=== PATIENT | female | born 1990 | race Caucasian/White ===

== ENCOUNTER 2018-04-11 05:26 | Emergency (ER) | payer SELFPAY ==
[~2018-04-11] VITALS: Ht 154.9 cm; Wt 54.4 kg
[~2018-04-11 05:26] MED LIST: BIRTH CONTROL PO; CEPH500C PO; DOXY100C2 PO; FLC100T1 PO; HYDR118S10 PO; PHEN200T27 PO; TRAM-21 PO
--- OUTSIDE RECORDS SUMMARY | 2018-04-11 05:33 | XMS REPORT | Continuity of Care Document ---
Author Author [facility] Organization [facility] Address Unknown Phone Unavailable Allergies There is no data. Medications There is no data. Problems Date Dx Coded Attending Type Code Diagnosis Diagnosed By 05/05/2009 JODIE VYAS APRN 599.0 URINARY TRACT INFECTION SITE NOT SPECIFIED 05/05/2009 JODIE VYAS APRN A 682.5 CELLULITIS AND ABSCESS OF BUTTOCK 05/05/2009 JODIE VYAS APRN A 599.0 URINARY TRACT INFECTION SITE NOT SPECIFIED 05/05/2009 JODIE VYAS APRN 682.5 CELLULITIS AND ABSCESS OF BUTTOCK 07/23/2013 JODIE VYAS APRN A 789.03 ABDOMINAL PAIN RIGHT LOWER QUADRANT 07/23/2013 JODIE VYAS APRN A V25.01 CONTRACEPTION - ORAL CONTRACEPTION 07/23/2013 JODIE VYAS APRN A V74.5 STD SCREEN 07/23/2013 JODIE VYAS APRN A V76.10 BREAST CANCER SCREENING 07/23/2013 JODIE VYAS APRN A V76.2 CERVICAL CANCER SCREENING (PAP SMEAR) 07/23/2013 JODIE VYAS APRN A 789.03 ABDOMINAL PAIN RIGHT LOWER QUADRANT 07/23/2013 JODIE VYAS APRN A V25.01 CONTRACEPTION - ORAL CONTRACEPTION 07/23/2013 JODIE VYAS APRN A V74.5 STD SCREEN 07/23/2013 JODIE VYAS APRN A V76.10 BREAST CANCER SCREENING 07/23/2013 JODIE VYAS APRN A V76.2 CERVICAL CANCER SCREENING (PAP SMEAR) 02/09/2014 JODIE VYAS APRN A V65.45 COUNSELING - STD Procedures Code Description [place] [address] GC/CHLAM PROBE (STATE) 07/23/2013 Q0091 PAP SMEAR OBTAIN SMEAR 07/23/2013 23029 URINE TEST (IN- HOUSE) 07/23/2013 27389 UA W/ CULTURE IF INDICATED 07/23/2013 89120 TRICHOMONAS (IN-HOUSE) 07/23/2013 00516 CULTURE UROGENITAL 07/27/2013 88352 PAP SMEAR 07/29/2013 Results There is no data. Encounters ACCT No. Visit Date/Time Discharge Status Pt. Type Provider Facility Loc./Unit Complaint [id number] 11/18/2013 15:17:00 11/18/2013 23:59:59 CLS Outpatient [id number] 09/21/2013 10:48:00 09/21/2013 14:29:00 DIS Emergency [id number] 09/18/2013 16:39:00 09/18/2013 21:12:00 DIS Emergency [id number] 07/21/2013 04:16:00 07/21/2013 04:50:00 DIS Emergency [id number] 02/09/2014 14:45:00 02/09/2014 23:59:59 CLS Outpatient JODIE VYAS APRN [id number] 07/23/2013 14:16:00 07/23/2013 23:59:59 CLS Outpatient JODIE VYAS APRN [id number] 03/20/2018 13:00:00 03/20/2018 23:59:59 CLS Outpatient KEVIN GLOVER DO [facility]
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
[2018-04-11 07:01] VITALS: BP 146/96
== END 2018-04-11 07:04 | disposition home or self-care (01) ==
LOC: EDUNIT# 05:26 → ER 05:30
DX: S00.83XA Contusion of other part of head, initial encounter (principal); S10.93XA Contusion of unspecified part of neck, initial encounter; R40.2142 Coma scale, eyes open, spontaneous, at arrival to emergency department; R40.2252 Coma scale, best verbal response, oriented, at arrival to emergency department; R40.2362 Coma scale, best motor response, obeys commands, at arrival to emergency department; F17.210 Nicotine dependence, cigarettes, uncomplicated; Y04.8XXA Assault by other bodily force, initial encounter
CPT/HCPCS: 70450; 70486; 72125

== ENCOUNTER 2018-12-20 23:11 | Emergency (ER) | payer SELFPAY ==
[~2018-12-20] VITALS: Ht 154.9 cm; Wt 52.2 kg
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
--- OUTSIDE RECORDS SUMMARY | 2018-12-21 00:43 | XMS REPORT ---
Author Author MARY BETH OWENS Organization [facility] Address [address] [place] [address] Care Team Providers Care Game Advisor Name Role Phone MARY BETH OWENS Unavailable PROBLEMS Type Condition ICD9-CM Code LPV67-[place] Code Onset Dates Condition Status SNOMED Code Problem Screening for malignant neoplasm of the cervix V76.2 Active 564183894 Problem Constipation 564.00 Active 34096293 Problem Abdominal pain, right lower quadrant 789.03 Active 854423720 Problem Screening examination for venereal disease V74.5 Active 056753475 Problem Unspecified breast screening V76.10 Active 169843740 Problem General counseling for prescription of oral contraceptives V25.01 Active 425989058397096 Problem Counseling on other sexually transmitted diseases V65.45 Active 746340614 ALLERGIES No Known Allergies ENCOUNTERS Encounter Location Date Diagnosis [facility] [address] [id number] March, Dental examination Z01.20 [facility] [id number] [place] [phone] Jan, Bronchitis J40 [facility] [id number] [place] [phone] Apr, Constipation 564.00 and Abdominal pain, right lower quadrant 789.03 [facility] [id number] [place] [phone] Feb, [facility] [address] [phone] Feb, [facility] [address] [phone] Feb, [facility] [address] [phone] Feb, [facility] [address] [facility] [id number] [id number] 27 Jul, 2013 [facility] [address] [facility] [id number] [address] 18 Jul, 2013 [facility] [address] [facility] [id number] [address] 16 Jul, 2013 [facility] [address] [facility] [id number] [address] 12 Jul, 2013 IMMUNIZATIONS No Known Immunizations SOCIAL HISTORY Never Assessed REASON FOR VISIT flu symptoms Pt c/o fever and cough for several days ROGELIO Ritchie PLAN OF CARE VITAL SIGNS Height 61 in 2018-01-15 Weight 125.6 lbs 2018-01-15 Temperature 99.9 degrees Fahrenheit 2018-01-15 Heart Rate 94 bpm 2018-01-15 Respiratory Rate 18 2018-01-15 BMI 23.73 kg/m2 2018-01-15 Blood pressure systolic 122 mmHg 2018-01-15 Blood pressure diastolic 60 mmHg 2018-01-15 MEDICATIONS Medication Instructions Dosage Frequency Start Date End Date Duration Status Amoxicillin 500 mg Orally every 8 hrs 1 capsule 8h Jan, Jan, 10 day(s) Active PredniSONE 20 mg Orally Once a day 2 tablets 24h Jan, Jan, 05 days Active RESULTS No Results PROCEDURES No Known procedures INSTRUCTIONS MEDICATIONS ADMINISTERED No Known Medications MEDICAL (GENERAL) HISTORY Type Description Date Medical History bronchitis Medical History prednisone Medical History hives/eczema
--- OUTSIDE RECORDS SUMMARY | 2018-12-21 00:43 | XMS REPORT ---
Author Author LAURALIZZY VANESSA [facility] Address Unknown Care Team Providers Care Mortgage Closing Clerk Name Role Phone VANESSA SPENCE Unavailable PROBLEMS Type Condition ICD9-CM Code ANG77-ZG Code Onset Dates Condition Status SNOMED Code Problem Screening for malignant neoplasm of the cervix V76.2 Active 539317303 Problem Constipation 564.00 Active 67571522 Problem Abdominal pain, right lower quadrant 789.03 Active 638925280 Problem Screening examination for venereal disease V74.5 Active 751843747 Problem Unspecified breast screening V76.10 Active 961242447 Problem General counseling for prescription of oral contraceptives V25.01 Active 176819049882298 Problem Counseling on other sexually transmitted diseases V65.45 Active 711309204 ALLERGIES No Known Allergies ENCOUNTERS Encounter Location Date Diagnosis [facility] [id number] [place] [id number] March, Dental examination Z01.20 [facility] [id number] [place] [address] Jan, Bronchitis J40 [facility] [id number] [place] [address] Apr, Constipation 564.00 and Abdominal pain, right lower quadrant 789.03 [facility] [id number] [place] [address] Feb, [facility] [id number] [place] [address] Feb, [facility] [id number] [place] [address] Feb, [facility] [id number] [place] [phone] Feb, [facility] [id number] [place] [address] 27 Jul, 2013 [facility] [address] [facility] [id number], [place] [address] 18 Jul, 2013 [facility] [address] [facility] [id number], [place] [address] 16 Jul, 2013 [facility] [address] [facility] [id number] [place] [address] 12 Jul, 2013 IMMUNIZATIONS No Known Immunizations SOCIAL HISTORY Never Assessed REASON FOR VISIT logan/pain PLAN OF CARE Activity Details Follow Up prn Reason:pt will contact us VITAL SIGNS Blood pressure systolic 138 mmHg 2018-03-20 Blood pressure diastolic 82 mmHg 2018-03-20 MEDICATIONS Medication Instructions Dosage Frequency Start Date End Date Duration Status Amoxicillin 500 MG Orally Three times a day 1 capsule 8h 7 days Active Naproxen Active RESULTS No Results PROCEDURES Procedure Date Ordered Result Body Site LTD ORAL EVALUATION - PROBLEM FOCUS March 20, 2018 INTRAORL-PERIAPICAL 1 FILM 22397 March 20, 2018 BITEWINGS - TWO FILMS March 20, 2018 INTRAORL-PERIAPICAL EA ADD FILM March 20, 2018 INSTRUCTIONS MEDICATIONS ADMINISTERED No Known Medications MEDICAL (GENERAL) HISTORY Type Description Date Medical History bronchitis Medical History prednisone Medical History hives/eczema
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
[2018-12-21 01:36] LABS: BILIRUBIN,URINE NEGATIVE (NEGATIVE); CLARITY,URINE SLIGHTLY CLOUDY; COLOR,URINE YELLOW; GLUCOSE, URINE (UA) NEGATIVE (NEGATIVE); KETONES,URINE NEGATIVE (NEGATIVE); LEUKOCYTE ESTERASE ,URINE 2+ (NEGATIVE); NITRITE,URINE POSITIVE (NEGATIVE); PH,URINE 6 (5-9); PROTEIN,URINE NEGATIVE (NEGATIVE); UROBILINOGEN,URINE NORMAL (NORMAL)
[2018-12-21 01:45] LABS: BASOPHILS % (AUTO) 0 % (0-10); EOSINOPHILS # (AUTO) 0.2 10^3/uL (0.0-0.3); EOSINOPHILS % (AUTO) 2 % (0-10); HEMATOCRIT 45 % (35-52); HEMOGLOBIN 15.3 G/DL (11.5-16.0); LYMPHOCYTES # (AUTO) 2.1 X 10^3 (1.0-4.0); LYMPHOCYTES % (AUTO) 23 % (12-44); MEAN CORPUSCULAR HEMOGLOBIN 29 PG (25-34); MEAN CORPUSCULAR HGB CONC 34 G/DL (32-36); MEAN CORPUSCULAR VOLUME 85 FL (80-99); MEAN PLATELET VOLUME 8.9 FL (7.4-10.4); MONOCYTES # (AUTO) 0.6 X 10^3 (0.0-1.0); MONOCYTES % (AUTO) 6 % (0-12); NEUTROPHILS % (AUTO) 68 % (42-75); PLATELET COUNT 422 10^3/uL (130-400); WHITE BLOOD COUNT 8.9 10^3/uL (4.3-11.0)
[2018-12-21 01:45] LABS: BACTERIA,URINE LARGE /HPF; WBC,URINE 50-100 /HPF
[2018-12-21 01:46] LABS: AMPHETAMINE SCREEN, URINE NEGATIVE (NEGATIVE); BARBITURATE SCREEN URINE NEGATIVE (NEGATIVE); BENZODIAZEPINES SCREEN URINE NEGATIVE (NEGATIVE); CANNABINOID SCREEN, URINE NEGATIVE (NEGATIVE); COCAINE SCREEN URINE NEGATIVE (NEGATIVE); METHADONE STAT NEGATIVE (NEGATIVE); METHAMPHETAMINE SCREEN URINE S NEGATIVE (NEGATIVE); OPIATE SCREEN URINE NEGATIVE (NEGATIVE); OXYCODONE STAT NEGATIVE (NEGATIVE); PROPOXYPHENE STAT NEGATIVE (NEGATIVE); TRICYCLIC ANTIDEPRESSANTS SCRE NEGATIVE (NEGATIVE)
[2018-12-21 02:06] LABS: ALANINE AMINOTRANSFERASE 12 U/L (0-55); ALBUMIN 4.8 GM/DL (3.2-4.5); ALKALINE PHOSPHATASE 93 U/L (40-136); BILIRUBIN,TOTAL 0.4 MG/DL (0.1-1.0); BUN/CREATININE RATIO 16; CALCIUM 10.1 MG/DL (8.5-10.1); CARBON DIOXIDE 26 MMOL/L (21-32); CHLORIDE 102 MMOL/L (98-107); CREATININE SERUM 0.83 MG/DL (0.60-1.30); GFR ESTIMATED > 60; GLUCOSE 72 MG/DL (70-105); POTASSIUM 3.5 MMOL/L (3.6-5.0); SALICYLATE < 5.0 MG/DL (5.0-20.0); SODIUM 140 MMOL/L (135-145)
[2018-12-21 02:10] LABS: ACETAMINOPHEN < 10 UG/ML (10-30)
[2018-12-21] MEDS ORDERED: CEPHALEXIN 250 MG (KEFLEX) CAP PO STA (02:32)
--- NOTE | 2018-12-21 02:53 | NUR ---
[facility] was called for open beds and they stated that they were completely full. [facility] was called and stated they might have opening in the morning. [facility] was called several times and got voicemail. Voicemail was left telling them to give us a call. does not have insurance so [facility] and [facility] is not an option.
--- NOTE | 2018-12-21 04:11 | NUR ---
Voicemail left with [facility]
--- NOTE | 2018-12-21 08:20 | NUR ---
Called [facility] for open bed. Was told to call back in two hours.
--- NOTE | 2018-12-21 10:43 | NUR ---
Called [facility] again. Nurse there reported staffing issues and unable to provide bad at this time. This nurse told to call back after 1600.
--- NOTE | 2018-12-21 10:51 | NUR ---
This nurse spoke to Fariha Harris. No beds available.
--- NOTE | 2018-12-21 10:52 | NUR ---
[facility] called at this time. No beds available. Nurse to call back if there is a discharge.
--- NOTE | 2018-12-21 10:55 | NUR ---
Pt sleeping upon entering room. Pt given update of bed status for psych transfer at this time.
--- NOTE | 2018-12-21 13:00 | NUR ---
Called and spoke with pt's mother re: being unable to find inpt bed for pt. Mother and pt open to having [facility] screen pt.
--- NOTE | 2018-12-21 13:15 | NUR ---
Message left with Kunal at [facility] requesting screening for pt.
--- NOTE | 2018-12-21 13:25 | NUR ---
Terri from [facility] called and Terri to come to ED and assess pt.
--- NOTE | 2018-12-21 14:43 | NUR ---
Terri from [facility] has met with pt. Terri reports pt is agreeable to [facility] and agrees to go home with family.
[2018-12-21 14:59] VITALS: BP 100/57
== END 2018-12-21 15:05 | disposition home or self-care (01) ==
LOC: EDUNIT# 23:11 → ER 23:15
DX: F22 Delusional disorders (principal); F17.210 Nicotine dependence, cigarettes, uncomplicated; Z98.890 Other specified postprocedural states
CPT/HCPCS: 36415; 80053; 80306; 80320; 80329; 81000; 84443; 84703; 85025; 87077; 87088; 87186; 93005

== ENCOUNTER 2019-08-22 14:17 | Emergency (ER) | payer SELFPAY ==
[~2019-08-22] VITALS: Ht 154 cm; Wt 61.0 kg
[2019-08-22] MEDS ORDERED: ALPRAZolam 0.5 MG (XANAX) TAB PO SCH (15:15)
[2019-08-22] MEDS ORDERED: OLANZapine 5 MG ODT (ZyPREXA ZYDIS) PO ONE (15:30)
--- NOTE | 2019-08-22 15:30 | NUR ---
URINE COLLECTED FROM PT FELT COOL ET NOT WARM. ZEN NOTIFIED.
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
[2019-08-22 15:40] LABS: BILIRUBIN,URINE NEGATIVE (NEGATIVE); CLARITY,URINE CLEAR; COLOR,URINE YELLOW; GLUCOSE, URINE (UA) NEGATIVE (NEGATIVE); KETONES,URINE NEGATIVE (NEGATIVE); LEUKOCYTE ESTERASE ,URINE 2+ (NEGATIVE); NITRITE,URINE NEGATIVE (NEGATIVE); PH,URINE 7 (5-9); PROTEIN,URINE NEGATIVE (NEGATIVE); UROBILINOGEN,URINE NORMAL (NORMAL)
[2019-08-22 15:45] LABS: RBC,URINE RARE /HPF
[2019-08-22 15:46] LABS: BACTERIA,URINE FEW /HPF; WBC,URINE 25-50 /HPF
[2019-08-22 15:52] LABS: AMPHETAMINE SCREEN, URINE POSITIVE (NEGATIVE); BARBITURATE SCREEN URINE NEGATIVE (NEGATIVE); BENZODIAZEPINES SCREEN URINE POSITIVE (NEGATIVE); CANNABINOID SCREEN, URINE NEGATIVE (NEGATIVE); COCAINE SCREEN URINE NEGATIVE (NEGATIVE); METHADONE STAT NEGATIVE (NEGATIVE); METHAMPHETAMINE SCREEN URINE S POSITIVE (NEGATIVE); OPIATE SCREEN URINE POSITIVE (NEGATIVE); OXYCODONE STAT NEGATIVE (NEGATIVE); PROPOXYPHENE STAT NEGATIVE (NEGATIVE); TRICYCLIC ANTIDEPRESSANTS SCRE POSITIVE (NEGATIVE)
[2019-08-22 16:06] LABS: BASOPHILS % (AUTO) 0 % (0-10); EOSINOPHILS # (AUTO) 0.2 10^3/uL (0.0-0.3); EOSINOPHILS % (AUTO) 2 % (0-10); HEMATOCRIT 38 % (35-52); HEMOGLOBIN 13.4 G/DL (11.5-16.0); LYMPHOCYTES # (AUTO) 1.6 X 10^3 (1.0-4.0); LYMPHOCYTES % (AUTO) 16 % (12-44); MEAN CORPUSCULAR HEMOGLOBIN 28 PG (25-34); MEAN CORPUSCULAR HGB CONC 35 G/DL (32-36); MEAN CORPUSCULAR VOLUME 81 FL (80-99); MEAN PLATELET VOLUME 9.1 FL (7.4-10.4); MONOCYTES # (AUTO) 0.7 X 10^3 (0.0-1.0); MONOCYTES % (AUTO) 7 % (0-12); NEUTROPHILS # (AUTO) 7.6 X 10^3 (1.8-7.8); NEUTROPHILS % (AUTO) 75 % (42-75); PLATELET COUNT 340 10^3/uL (130-400); RED CELL DISTRIBUTION WIDTH 12.4 % (10.0-14.5)
[2019-08-22] MEDS ORDERED: CEPH500T PO (16:08)
[2019-08-22] MEDS ORDERED: CEFDINIR 300 MG (OMNICEF) CAP PO ONE (16:15)
[2019-08-22 16:25] LABS: ALANINE AMINOTRANSFERASE 34 U/L (0-55); ALBUMIN 4.3 GM/DL (3.2-4.5); ALKALINE PHOSPHATASE 93 U/L (40-136); BILIRUBIN,TOTAL 0.5 MG/DL (0.1-1.0); BUN/CREATININE RATIO 10; CALCIUM 8.7 MG/DL (8.5-10.1); CARBON DIOXIDE 24 MMOL/L (21-32); CHLORIDE 104 MMOL/L (98-107); CREATININE SERUM 0.82 MG/DL (0.60-1.30); GFR ESTIMATED > 60; GLUCOSE 102 MG/DL (70-105); SODIUM 138 MMOL/L (135-145)
[2019-08-22] MEDS ORDERED: KCL 10 MEQ TAB (MICRO K) PO ONE (16:30)
[2019-08-22] MEDS ORDERED: RISP2TAB83 PO (16:32)
[2019-08-22 16:50] VITALS: BP 132/75
[2019-08-22] MEDS ORDERED: POTA-51 PO (17:04)
== END 2019-08-22 16:50 | disposition home or self-care (01) ==
LOC: EDUNIT# 14:17 → ER 14:19
DX: N39.0 Urinary tract infection, site not specified (principal); F15.90 Other stimulant use, unspecified, uncomplicated; F17.210 Nicotine dependence, cigarettes, uncomplicated
CPT/HCPCS: 36415; 80053; 80306; 81000; 84703; 85025; 87077; 87088; 87186; 99283

== ENCOUNTER 2019-09-22 21:19 | Emergency (ER) | payer SELFPAY ==
[~2019-09-22] VITALS: Ht 154.9 cm; Wt 61.0 kg
[~2019-09-22 21:19] MED LIST changes: +CEPH500T PO; +POTA-51 PO; +RISP2TAB83 PO
--- NOTE | 2019-09-22 21:46 | ED General ---
General Stated Complaint: POSS HEP B EXPOSURE Source of Information: Patient Exam Limitations: Intoxication History of Present Illness Date Seen by Provider: Sep 22, 2019 Time Seen by Provider: 21:33 Initial Comments PT ARRIVES VIA POV PT IS OBVIOUSLY UNDER THE INFLUENCE OF SOME SUBSTANCE/S--KNOWN METH USER SPEECH IS VERY RAPID AND ERRATIC AND COMPLETELY NON-SENSICAL AND SENTENCES ARE NOT CONNECTED AND CANNOT COMPLETE MOST SENTENCES. IS UNKNOWN WHY SHE IS HERE, SHE CANNOT GIVE ANY RELIABLE INFORMATION PACING ALL OVER ROOM, WITH CONSTANT MOVEMENTS PT CANNOT VOICE A COMPLAINT OR REASON WHY SHE IS HERE. EVENTUALLY ADMITS TO DRUG USE, BUT CANNOT STATE WHAT OR WHEN SHE LAST USED DOES ADMIT TO IV METH USE. ALSO ADMITS TO THC AND K2 USE. UNABLE TO OBTAIN ANY OTHER RELIABLE INFORMATION FROM PT PCP: [facility] Allergies and Home Medications Allergies Coded Allergies: NKANo Known Allergies (Unverified Allergy, Mild, 05/06/09) Home Medications [ Control] , 1 TAB PO DAILY, (Reported) Patient Home Medication List Home Medication List Reviewed: Yes Review of Systems Review of Systems Constitutional: other (UNABLE TO OBTAIN) Past Rvxfmvh-Gmibso-Sxoapy Hx Past Med/Social Hx: Reviewed and Corrections made Patient Social History Alcohol Use: Occasionally Uses Alcohol Beverage of Choice: Beer Recreational Drug Use: Yes (+ IV METH, THC, K2, XANAX, "OTHERS") Drug of Choice: +IV METH, XANAX, K2, THC, "OTHERS" Smoking Status: Current Everyday Smoker (UNKNOWN AMOUNT) Type Used: Cigarettes 2nd Hand Smoke Exposure: Yes Recent Foreign Travel: No Contact w/Someone Who Travel: No Recent Hopitalizations: No Immunizations Up To Date Tetanus Booster (TDap): Less than 5yrs Seasonal Allergies Seasonal Allergies: No Past Medical History Surgeries: Yes Orthopedic Respiratory: No Cardiac: No Neurological: No Reproductive Disorders: No Female Reproductive Disorders: Denies Sexually Transmitted Disease: Yes Genitourinary: No Gastrointestinal: No Musculoskeletal: No Endocrine: No HEENT: No Cancer: No Psychosocial: Yes (POLYSUBSTANCE ABUSE) Integumentary: No Blood Disorders: No Family Medical History No Pertinent Family Hx Physical Exam Vital Signs Vital Signs - First Documented 09/22/19 09/22/19 21:33 22:25 Temp 36.7 Pulse 120 Resp 22 B/P (MAP) 113/94 (100) Pulse Ox 100 Capillary Refill : Height, Weight, BMI Height: 5'1.00" Weight: 115lbs. oz. 52.620406co; 25.00 BMI Method:Stated General Appearance: No Apparent Distress, WD/WN, Other (SPEECH VERY RAPID AND ERRATIC AND COMPLETELY NON-SENSICAL. SPEECH IS NOT SLURRED. PACING, CONSTANT MOVEMENTS OF ENTIRE BODY, INCLUDING MOUTH AND TONGUE.) HEENT: PERRL/EOMI, TMs Normal, Normal ENT Inspection, Pharynx Normal Neck: Full Range of Motion, Normal Inspection, Non Tender, Supple Respiratory: Normal Breath Sounds, No Accessory Muscle Use, No Respiratory Distress Cardiovascular: Regular Rate, Rhythm, No Edema, No JVD, No Murmur, Normal Peripheral Pulses Gastrointestinal: Normal Bowel Sounds, No Organomegaly, Non Tender, Soft Back: No CVA Tenderness Extremity: Normal Range of Motion, No Pedal Edema Neurologic/Psychiatric: Alert, No Motor/Sensory Deficits, librarian helper II-XII Norm as Tested, Other (BEHAVIOR/MENTATION ABOVE--OBVIOUSLY UNDER THE INFLUENCE OF SOME SUBSTANCE/S ) Skin: Normal Color, Warm/Dry; No Rash; Other (NO EXTERNAL EVIDENCE OF TRAUMA ANYWHERE. ) Progress/Results/Core Measures Suspected Sepsis SIRS Temperature: Pulse: Respiratory Rate: Laboratory Tests 09/22/19 21:50: White Blood Count 11.7H Blood Pressure / Mean: Laboratory Tests 09/22/19 21:50: Creatinine 0.82, Platelet Count 367, Total Bilirubin 0.6 Results/Orders Lab Results Laboratory Tests Test 09/22/19 21:50 Range/Units White Blood Count 11.7 H 4.3-11.0 10^3/uL Red Blood Count 5.08 4.35-5.85 10^6/uL Hemoglobin 14.3 11.5-16.0 G/DL Hematocrit 40 35-52 % Mean Corpuscular Volume 79 L 80-99 FL Mean Corpuscular Hemoglobin 28 25-34 PG Mean Corpuscular Hemoglobin Concent 36 32-36 G/DL Red Cell Distribution Width 12.9 10.0-14.5 % Platelet Count 367 130-400 10^3/uL Mean Platelet Volume 9.1 7.4-10.4 FL Neutrophils (%) (Auto) 78 H 42-75 % Lymphocytes (%) (Auto) 11 L 12-44 % Monocytes (%) (Auto) 10 0-12 % Eosinophils (%) (Auto) 1 0-10 % Basophils (%) (Auto) 0 0-10 % Neutrophils # (Auto) 9.1 H 1.8-7.8 X 10^3 Lymphocytes # (Auto) 1.3 1.0-4.0 X 10^3 Monocytes # (Auto) 1.2 H 0.0-1.0 X 10^3 Eosinophils # (Auto) 0.1 0.0-0.3 10^3/uL Basophils # (Auto) 0.0 0.0-0.1 10^3/uL Urine Color DARK YELLOW Urine Clarity CLOUDY Urine pH 5.5 5-9 Urine Specific Lincoln >=1.030 1.016-1.022 Urine Protein TRACE NEGATIVE Urine Glucose (UA) NEGATIVE NEGATIVE Urine Ketones NEGATIVE NEGATIVE Urine Nitrite NEGATIVE NEGATIVE Urine Bilirubin 1+ H NEGATIVE Urine Urobilinogen 0.2 < = 1.0 MG/DL Urine Leukocyte Esterase NEGATIVE NEGATIVE Urine RBC (Auto) 1+ H NEGATIVE Urine RBC 2-5 H /HPF Urine WBC RARE /HPF Urine Squamous Epithelial Cells 10-25 H /HPF Urine Crystals NONE /LPF Urine Bacteria FEW H /HPF Urine Casts NONE /LPF Urine Mucus LARGE H /LPF Urine Culture Indicated NO Sodium Level 140 135-145 MMOL/L Potassium Level 3.6 3.6-5.0 MMOL/L Chloride Level 104 98-107 MMOL/L Carbon Dioxide Level 21 21-32 MMOL/L Anion Gap 15 H 5-14 MMOL/L Blood Urea Nitrogen 10 7-18 MG/DL Creatinine 0.82 0.60-1.30 MG/DL Estimat Glomerular Filtration Rate > 60 BUN/Creatinine Ratio 12 Glucose Level 84 70-105 MG/DL Calcium Level 9.9 8.5-10.1 MG/DL Corrected Calcium 8.5-10.1 MG/DL Total Bilirubin 0.6 0.1-1.0 MG/DL Aspartate Amino Transf (AST/SGOT) 22 5-34 U/L Alanine Aminotransferase (ALT/SGPT) 13 0-55 U/L Alkaline Phosphatase 103 40-136 U/L Total Protein 7.8 6.4-8.2 GM/DL Albumin 4.8 H 3.2-4.5 GM/DL Salicylates Level < 5.0 L 5.0-20.0 MG/DL Urine Opiates Screen NEGATIVE NEGATIVE Urine Oxycodone Screen NEGATIVE NEGATIVE Urine Methadone Screen NEGATIVE NEGATIVE Urine Propoxyphene Screen NEGATIVE NEGATIVE Acetaminophen Level < 10 L 10-30 UG/ML Urine Barbiturates Screen NEGATIVE NEGATIVE Ur Tricyclic Antidepressants Screen POSITIVE H NEGATIVE Urine Phencyclidine Screen NEGATIVE NEGATIVE Urine Amphetamines Screen POSITIVE H NEGATIVE Urine Methamphetamines Screen POSITIVE H NEGATIVE Urine Benzodiazepines Screen POSITIVE H NEGATIVE Urine Cocaine Screen NEGATIVE NEGATIVE Urine Cannabinoids Screen NEGATIVE NEGATIVE Serum Alcohol < 10 <10 MG/DL My Orders Orders - IMAN DOSHI DO Acetaminophen (09/22/19 21:41) Alcohol (09/22/19 21:41) Cbc With Automated Diff (09/22/19 21:41) Comprehensive Metabolic Panel (09/22/19 21:41) Drug Screen Stat (Urine) (09/22/19 21:41) Salicylate (09/22/19 21:41) Ua Culture If Indicated (09/22/19 21:41) Urine Bedside (09/22/19 21:41) Vital Signs/I&O 09/22/19 09/22/19 21:33 22:25 Temp 36.7 36.7 Pulse 120 120 Resp 22 22 B/P (MAP) 113/94 (100) 112/92 (100) Pulse Ox 100 Capillary Refill : Progress Note : Progress Note UNEVENTFUL ER STAY PT WAS COOPERATIVE, AND NO BELLIGERENT OR DISRUPTIVE BEHAVIOR. Departure Impression Primary Impression: Illicit drug use Additional Impression: Polysubstance abuse Disposition: 01 HOME, SELF-CARE Condition: Stable Departure-Patient Inst. Referrals: [facility] (PCP/Family) Primary Care Physician Patient Instructions: Drug Abuse and Drug Addiction (DC) Add. Discharge Instructions: FOLLOW UP WITH [facility] FOR FURTHER CARE IMAN DOSHI DO Sep 22, 2019 21:46 POS
[2019-09-22 22:01] LABS: BASOPHILS % (AUTO) 0 % (0-10); CLARITY,URINE CLOUDY; COLOR,URINE DARK YELLOW; EOSINOPHILS # (AUTO) 0.1 10^3/uL (0.0-0.3); EOSINOPHILS % (AUTO) 1 % (0-10); GLUCOSE, URINE (UA) NEGATIVE (NEGATIVE); HEMATOCRIT 40 % (35-52); HEMOGLOBIN 14.3 G/DL (11.5-16.0); KETONES,URINE NEGATIVE (NEGATIVE); LEUKOCYTE ESTERASE ,URINE NEGATIVE (NEGATIVE); LYMPHOCYTES # (AUTO) 1.3 X 10^3 (1.0-4.0); LYMPHOCYTES % (AUTO) 11 % (12-44); MEAN CORPUSCULAR HEMOGLOBIN 28 PG (25-34); MEAN CORPUSCULAR HGB CONC 36 G/DL (32-36); MEAN CORPUSCULAR VOLUME 79 FL (80-99); MEAN PLATELET VOLUME 9.1 FL (7.4-10.4); MONOCYTES # (AUTO) 1.2 X 10^3 (0.0-1.0); MONOCYTES % (AUTO) 10 % (0-12); NEUTROPHILS # (AUTO) 9.1 X 10^3 (1.8-7.8); NEUTROPHILS % (AUTO) 78 % (42-75); NITRITE,URINE NEGATIVE (NEGATIVE); PH,URINE 5.5 (5-9); PLATELET COUNT 367 10^3/uL (130-400); PROTEIN,URINE TRACE (NEGATIVE); RED CELL DISTRIBUTION WIDTH 12.9 % (10.0-14.5); WHITE BLOOD COUNT 11.7 10^3/uL (4.3-11.0)
[2019-09-22 22:14] LABS: AMPHETAMINE SCREEN, URINE POSITIVE (NEGATIVE); BARBITURATE SCREEN URINE NEGATIVE (NEGATIVE); BENZODIAZEPINES SCREEN URINE POSITIVE (NEGATIVE); CANNABINOID SCREEN, URINE NEGATIVE (NEGATIVE); COCAINE SCREEN URINE NEGATIVE (NEGATIVE); METHADONE STAT NEGATIVE (NEGATIVE); METHAMPHETAMINE SCREEN URINE S POSITIVE (NEGATIVE); OPIATE SCREEN URINE NEGATIVE (NEGATIVE); OXYCODONE STAT NEGATIVE (NEGATIVE); PROPOXYPHENE STAT NEGATIVE (NEGATIVE); TRICYCLIC ANTIDEPRESSANTS SCRE POSITIVE (NEGATIVE)
[2019-09-22 22:17] LABS: BACTERIA,URINE FEW /HPF; BILIRUBIN,URINE 1+ (NEGATIVE); WBC,URINE RARE /HPF
[2019-09-22 22:21] LABS: ALANINE AMINOTRANSFERASE 13 U/L (0-55); ALBUMIN 4.8 GM/DL (3.2-4.5); ALKALINE PHOSPHATASE 103 U/L (40-136); BILIRUBIN,TOTAL 0.6 MG/DL (0.1-1.0); BUN/CREATININE RATIO 12; CALCIUM 9.9 MG/DL (8.5-10.1); CARBON DIOXIDE 21 MMOL/L (21-32); CHLORIDE 104 MMOL/L (98-107); CREATININE SERUM 0.82 MG/DL (0.60-1.30); GFR ESTIMATED > 60; GLUCOSE 84 MG/DL (70-105); POTASSIUM 3.6 MMOL/L (3.6-5.0); SALICYLATE < 5.0 MG/DL (5.0-20.0); SODIUM 140 MMOL/L (135-145); TOTAL PROTEIN 7.8 GM/DL (6.4-8.2)
[2019-09-22 22:22] LABS: ACETAMINOPHEN < 10 UG/ML (10-30)
[2019-09-22 22:25] VITALS: BP 112/92
--- NOTE | 2019-09-22 22:25 | NUR ---
PT REFUSED TO SIGN DC PAPER. PT CONTINUES TO EXHIBIT ERRATIC BEHAVIOR.
== END 2019-09-22 22:27 | disposition home or self-care (01) ==
LOC: EDUNIT# 21:19 → ER 21:21
DX: F15.10 Other stimulant abuse, uncomplicated (principal); F12.10 Cannabis abuse, uncomplicated; F13.10 Sedative, hypnotic or anxiolytic abuse, uncomplicated; F17.210 Nicotine dependence, cigarettes, uncomplicated
CPT/HCPCS: 36415; 80053; 80306; 80320; 80329; 81000; 84703; 85025

== ENCOUNTER 2019-10-05 13:59 | Emergency (ER) | payer SELFPAY ==
[~2019-10-05] VITALS: Ht 154.9 cm; Wt 56.8 kg
[2019-10-05] MEDS ORDERED: ACETAMINOPHEN 500 MG TAB (TYLENOL) PO ONE (14:30)
[2019-10-05] MEDS ORDERED: LIDOCAINE 2% VISCOUS 15 ML UDC PO ONE (14:30)
[2019-10-05] MEDS ORDERED: IBUPROFEN 800 MG (MOTRIN) TAB PO ONE (14:30)
[2019-10-05] MEDS ORDERED: AMOX-358 PO (14:52)
--- NOTE | 2019-10-05 14:52 | ED EENT ---
History of Present Illness General Chief Complaint: Dental Problems/Pain Stated Complaint: DENTAL PAIN Nursing Triage Note: Pt amb to triage with c/o dental pain. Pt reports approx x3 days ago, she began to experience discomfort in her Rt lower molar. Pt reports she now feels a "bump" below her Rt jaw. Pt reports discomfort when swallowing and stiff neck. Pt reports intermittent fever and chills, but denies checking temperature. Pt currently afebrile @ this time. Source: patient Exam Limitations: no limitations History of Present Illness Date Seen by Provider: Oct 05, 2019 Time Seen by Provider: 17:00 Allergies and Home Medications Allergies Coded Allergies: NKANo Known Allergies (Unverified Allergy, Mild, 05/06/09) Home Medications [ Control] , 1 TAB PO DAILY, (Reported) Past Qdmhlcw-Hbeyig-Leyetb Hx Patient Social History Alcohol Use: Rarely Uses Number of Drinks Today: 0 Alcohol Beverage of Choice: Beer Recreational Drug Use: No Drug of Choice: +IV METH, XANAX, K2, THC, "OTHERS" Smoking Status: Current Everyday Smoker Type Used: Cigarettes 2nd Hand Smoke Exposure: Yes Recent Foreign Travel: No Contact w/Someone Who Travel: No Recent Infectious Disease Expo: No Recent Hopitalizations: No Immunizations Up To Date Tetanus Booster (TDap): Less than 5yrs Seasonal Allergies Seasonal Allergies: No Past Medical History Surgeries: Yes Orthopedic Respiratory: No Cardiac: No Neurological: No Reproductive Disorders: No Female Reproductive Disorders: Denies Sexually Transmitted Disease: Yes Genitourinary: No Gastrointestinal: No Musculoskeletal: No Endocrine: No HEENT: No Cancer: No Psychosocial: Yes (POLYSUBSTANCE ABUSE) Anxiety, Depression Integumentary: No Blood Disorders: No Family Medical History No Pertinent Family Hx Physical Exam Vital Signs Vital Signs - First Documented 10/05/19 14:00 Temp 36.9 Pulse 98 Resp 15 B/P (MAP) 122/88 (99) Pulse Ox 97 O2 Delivery Room Air Height, Weight, BMI Height: 5'1.00" Weight: 115lbs. oz. 52.170262wf; 23.00 BMI Method:Stated Progress/Results/Core Measures Results/Orders My Orders Orders - BERNOT,YANIQUE Amoxicillin/Clavulanate Tablet (Augmenti (10/05/19 17:00) Acetaminophen Tablet (Tylenol Tablet) (10/05/19 14:30) Ibuprofen Tablet (Motrin Tablet) (10/05/19 14:30) Lidocaine 2% Viscous 15 Ml (Xylocaine Vi (10/05/19 14:30) Vital Signs/I&O 10/05/19 14:00 Temp 36.9 Pulse 98 Resp 15 B/P (MAP) 122/88 (99) Pulse Ox 97 O2 Delivery Room Air Blood Pressure Mean: 99 POS Departure Impression Primary Impression: Dental abscess Disposition: HOME, SELF-CARE Condition: Stable/Unchanged Departure-Patient Inst. Decision time for Depature: 14:51 Referrals: [facility] (PCP/Family) Primary Care Physician Patient Instructions: Tooth Abscess (DC) Add. Discharge Instructions: Take medication as directed. You may use topical viscous lidocaine for additional pain relief. Tylenol and ibuprofen as directed by the bottle for pain. Follow-up with a dentist of your choosing within 1 week for recheck. Return back to the emergency room for worsening symptoms or concerns as needed. All discharge instructions reviewed with patient and/or family. Voiced under standing. Scripts Amoxicillin/Potassium Clav (Augmentin 875-125 Tablet) 1 Each Tablet 1 EACH PO BID for 10 Days, #20 TAB 0 Refills Prov: YANIQUE QUIROZ 10/05/19 YANIQUE QUIROZ Oct 05, 2019 14:52 POS
[2019-10-05 15:03] VITALS: BP 122/88
[2019-10-05] MEDS ORDERED: AUGMENTIN 875 MG TAB (AMOXICILLIN/CLAVULANATE) PO SCH (17:00)
== END 2019-10-05 15:03 | disposition home or self-care (01) ==
LOC: EDUNIT# 13:59 → ER 14:00
DX: K04.7 Periapical abscess without sinus (principal); F41.9 Anxiety disorder, unspecified; F32.9 Major depressive disorder, single episode, unspecified; F17.210 Nicotine dependence, cigarettes, uncomplicated
CPT/HCPCS: 99283

== ENCOUNTER 2020-02-09 14:32 | Emergency (ER) | payer SELFPAY ==
[~2020-02-09] VITALS: Ht 154.9 cm; Wt 56.6 kg
[2020-02-09 14:32] VITALS: BP 155/89
[~2020-02-09 14:32] MED LIST changes: +AMOX-358 PO
--- NOTE | 2020-02-09 14:42 | ED Cough/URI ---
General Chief Complaint: Cough/Cold/Flu Symptoms Stated Complaint: COUGH Source: patient Exam Limitations: no limitations History of Present Illness Date Seen by Provider: Feb 09, 2020 Time Seen by Provider: 14:39 Initial Comments To Er with c/o cough and "lump in throat" x3-4 days. No fevers. no known exposure to COVID19 patients. she is currently homeless, states she states she drank some hot damn liquor this morning since the convenient store was out of toothpaste. She also states that she walked here from [place] and needs some water as well. She states that she smoked something this morning, doesnt believe it was meth because it made her tired. Timing/Duration: just prior to arrival Severity/Quality: mild Associated Symptoms: cough, sore throat Allergies and Home Medications Allergies Coded Allergies: NKANo Known Allergies (Unverified Allergy, Mild, 05/06/09) Home Medications Amoxicillin/Potassium Clav 1 Each Tablet, 1 EACH PO BID Prescribed by: YANIQUE QUIROZ on 10/05/19 1452 [ Control] , 1 TAB PO DAILY, (Reported) Patient Home Medication List Home Medication List Reviewed: Yes Review of Systems Review of Systems Constitutional: see HPI; No fever EENTM: see HPI, throat pain Respiratory: see HPI, cough Cardiovascular: no symptoms reported Genitourinary: no symptoms reported Musculoskeletal: no symptoms reported Skin: no symptoms reported Psychiatric/Neurological: No Symptoms Reported Past Nyursht-Ykqaoj-Dydhnc Hx Patient Social History Alcohol Beverage of Choice: Beer Drug of Choice: +IV METH, XANAX, K2, THC, "OTHERS" Type Used: Cigarettes 2nd Hand Smoke Exposure: Yes Recent Hopitalizations: No Immunizations Up To Date Tetanus Booster (TDap): Less than 5yrs Seasonal Allergies Seasonal Allergies: No Past Medical History Surgeries: Yes Orthopedic Respiratory: No Cardiac: No Neurological: No Reproductive Disorders: No Female Reproductive Disorders: Denies Sexually Transmitted Disease: Yes Genitourinary: No Gastrointestinal: No Musculoskeletal: No Endocrine: No HEENT: No Cancer: No Psychosocial: Yes (POLYSUBSTANCE ABUSE) Anxiety, Depression Integumentary: No Blood Disorders: No Family Medical History No Pertinent Family Hx Physical Exam Vital Signs - First Documented 02/09/20 14:32 Temp 36.8 Pulse 111 Resp 18 B/P (MAP) 155/89 (111) Pulse Ox 97 O2 Delivery Room Air Capillary Refill : Height: 5'1.00" Weight: 115lbs. oz. 52.784737vk; 23.00 BMI Method:Stated General Appearance: WD/WN, no apparent distress Eyes: Bilateral Eye Normal Inspection, Bilateral Eye PERRL, Bilateral Eye EOMI HEENT: PERRL/EOMI, normal ENT inspection, TMs normal, pharynx normal Neck: non-tender, full range of motion; No lymphadenopathy (R), No lymphadenopathy (L) Respiratory: no respiratory distress, no accessory muscle use Cardiovascular: tachycardia Gastrointestinal: normal bowel sounds, non tender, soft Neurologic/Psychiatric: alert, normal mood/affect, oriented x 3, other (flight of ideas, avoids eye contact. ) Skin: normal color, warm/dry Progress/Results/Core Measures Suspected Sepsis SIRS Temperature: Pulse: Respiratory Rate: Laboratory Tests 02/09/20 14:36: White Blood Count 9.4 Blood Pressure / Mean: Laboratory Tests 02/09/20 14:36: Creatinine 0.92, Platelet Count 421H Results/Orders Lab Results Laboratory Tests Test 02/09/20 14:36 02/09/20 14:53 Range/Units White Blood Count 9.4 4.3-11.0 10^3/uL Red Blood Count 5.06 4.35-5.85 10^6/uL Hemoglobin 14.8 11.5-16.0 G/DL Hematocrit 42 35-52 % Mean Corpuscular Volume 84 80-99 FL Mean Corpuscular Hemoglobin 29 25-34 PG Mean Corpuscular Hemoglobin Concent 35 32-36 G/DL Red Cell Distribution Width 12.8 10.0-14.5 % Platelet Count 421 H 130-400 10^3/uL Mean Platelet Volume 9.2 7.4-10.4 FL Neutrophils (%) (Auto) 72 42-75 % Lymphocytes (%) (Auto) 18 12-44 % Monocytes (%) (Auto) 8 0-12 % Eosinophils (%) (Auto) 2 0-10 % Basophils (%) (Auto) 0 0-10 % Neutrophils # (Auto) 6.8 1.8-7.8 X 10^3 Lymphocytes # (Auto) 1.7 1.0-4.0 X 10^3 Monocytes # (Auto) 0.7 0.0-1.0 X 10^3 Eosinophils # (Auto) 0.1 0.0-0.3 10^3/uL Basophils # (Auto) 0.0 0.0-0.1 10^3/uL Sodium Level 142 135-145 MMOL/L Potassium Level 3.6 3.6-5.0 MMOL/L Chloride Level 108 H 98-107 MMOL/L Carbon Dioxide Level 17 L 21-32 MMOL/L Anion Gap 17 H 5-14 MMOL/L Blood Urea Nitrogen 8 7-18 MG/DL Creatinine 0.92 0.60-1.30 MG/DL Estimat Glomerular Filtration Rate > 60 BUN/Creatinine Ratio 9 Glucose Level 87 70-105 MG/DL Calcium Level 9.5 8.5-10.1 MG/DL Serum Test, Qualitative NEGATIVE NEGATIVE Serum Alcohol < 10 <10 MG/DL My Orders Orders - ZEN ZARCO APRN Cbc With Automated Diff (02/09/20 14:37) Alcohol (02/09/20 14:37) Hcg,Qualitative Serum (02/09/20 14:37) Basic Metabolic Panel (02/09/20 14:37) Chest 1 View, Ap/Pa Only (02/09/20 14:37) Rapid Strep A Screen (02/09/20 14:47) Influenza A And B Antigens (02/09/20 14:47) Vital Signs/I&O 02/09/20 14:32 Temp 36.8 Pulse 111 Resp 18 B/P (MAP) 155/89 (111) Pulse Ox 97 O2 Delivery Room Air Capillary Refill : Departure Impression Primary Impression: Sore throat Additional Impression: General medical exam Disposition: HOME, SELF-CARE Condition: Stable Departure-Patient Inst. Decision time for Depature: 15:16 Referrals: [facility] (PCP/Family) Primary Care Physician Patient Instructions: Sore Throat in Adults Add. Discharge Instructions: 1. tylenol and motrin as needed 2. Follow up with your doctor next week All discharge instructions reviewed with patient and/or family. Voiced understanding. ZEN ZARCO APRN Feb 09, 2020 14:42
[2020-02-09 14:45] LABS: BASOPHILS % (AUTO) 0 % (0-10); EOSINOPHILS # (AUTO) 0.1 10^3/uL (0.0-0.3); EOSINOPHILS % (AUTO) 2 % (0-10); HEMATOCRIT 42 % (35-52); HEMOGLOBIN 14.8 G/DL (11.5-16.0); LYMPHOCYTES # (AUTO) 1.7 X 10^3 (1.0-4.0); LYMPHOCYTES % (AUTO) 18 % (12-44); MEAN CORPUSCULAR HEMOGLOBIN 29 PG (25-34); MEAN CORPUSCULAR HGB CONC 35 G/DL (32-36); MEAN CORPUSCULAR VOLUME 84 FL (80-99); MEAN PLATELET VOLUME 9.2 FL (7.4-10.4); MONOCYTES # (AUTO) 0.7 X 10^3 (0.0-1.0); MONOCYTES % (AUTO) 8 % (0-12); NEUTROPHILS # (AUTO) 6.8 X 10^3 (1.8-7.8); NEUTROPHILS % (AUTO) 72 % (42-75); PLATELET COUNT 421 10^3/uL (130-400); RED CELL DISTRIBUTION WIDTH 12.8 % (10.0-14.5); WHITE BLOOD COUNT 9.4 10^3/uL (4.3-11.0)
[2020-02-09 15:09] LABS: BUN/CREATININE RATIO 9; CALCIUM 9.5 MG/DL (8.5-10.1); CARBON DIOXIDE 17 MMOL/L (21-32); CHLORIDE 108 MMOL/L (98-107); CREATININE SERUM 0.92 MG/DL (0.60-1.30); GFR ESTIMATED > 60; GLUCOSE 87 MG/DL (70-105); POTASSIUM 3.6 MMOL/L (3.6-5.0); SODIUM 142 MMOL/L (135-145)
--- NOTE | 2020-02-09 15:11 | NUR ---
PT CALLED REGISTRATION.
--- NOTE | 2020-02-09 15:13 | Diagnostic Imaging Report ---
Indication: Chest pain and shortness of air. Time of exam: 2:48 PM No prior studies are available for comparison. The heart size is normal. The pulmonary vascularity is unremarkable. The lungs are clear. No infiltrate, effusion or pneumothorax is detected. Impression: No acute cardiopulmonary process is detected. Dictated by: Dictated on workstation # [id number]
--- OUTSIDE RECORDS SUMMARY | 2020-02-09 15:50 | XMS REPORT ---
Author Author Sania Baez Organization [facility] Address [address] [place] [address] Care Team Providers Care Wood Room Hand Name Role Phone JODIE Baez Unavailable PROBLEMS Type Condition ICD9-CM Code [id number] Code Onset Dates Condition S tatus SNOMED Code Problem Mood disorder F39 Active 349527 05 ALLERGIES No Information ENCOUNTERS Encounter Location Date Diagnosis [facility] [address] [id number] [place] [id number] Jul, Viral URI J06.9 and Bilatera l otitis media with effusion H65.93 [facility] [address] [id number] [place] [address] March, Mood disorder F39 [facility] [address] [place], [place] [id number] 57 March, Mood disorder F39 [facility] [address] [id number] [place] [address] Feb, Mood disorder F39 [facility] [address] [place], [place] [id number] 57 Feb, Mood disorder F39 [facility] [address] [id number] [place] [address] Feb, Mood disorder F39 [facility] [address] [id number] [place] [id number] March, Dental examination Z01.20 [facility] [id number] [place] [phone] Jan, Bronchitis J40 [facility] [address] [id number] [place] [address] Apr, Constipation 564.00 and Abdominal pain, right lower quadrant 789.03 [facility] [address] [id number] [place] [address] 14 Feb, 2015 [facility] [address] [id number] [place] [address] Feb, [facility] [address] [id number] [place] [address] Feb, [facility] [address] [id number] [place] [address] Feb, [facility] [address] [id number] [place] [address] Jul, [facility] [address] [id number] [place] [address] Jul, [facility] [address] [id number] [place] [address] Jul, [facility] [address] [id number] [place] [address] Jul, IMMUNIZATIONS No Known Immunizations SOCIAL HISTORY Never Assessed REASON FOR VISIT PLAN OF CARE VITAL SIGNS Height 61 in 2014-02-09 Weight 149.4 lbs 2014-02-09 Temperature 98.4 degrees Fahrenheit 2014-02-09 Heart Rate 76 bpm 2014-02-09 Respiratory Rate 16 2014-02-09 Blood pressure systolic 118 mmHg 2014-02-09 Blood pressure diastolic 78 mmHg 2014-02-09 MEDICATIONS No Known Medications RESULTS No Results PROCEDURES No Known procedures INSTRUCTIONS MEDICATIONS ADMINISTERED No Known Medications MEDICAL (GENERAL) HISTORY Type Description Date Medical History bronchitis Medical History hives/eczema Surgical History No know Surgical history Hospitalization History No Hospitalization history informati on
== END 2020-02-09 15:21 | disposition home or self-care (01) ==
LOC: EDUNIT# 14:32 → ER 14:33
DX: J02.9 Acute pharyngitis, unspecified (principal); F41.9 Anxiety disorder, unspecified; F32.9 Major depressive disorder, single episode, unspecified
CPT/HCPCS: 36415; 71045; 80048; 80320; 84703; 85025; 87430; 87804

== ENCOUNTER 2020-05-13 11:10 | Emergency (ER) | payer SELFPAY ==
[~2020-05-13] VITALS: Ht 152 cm; Wt 57.0 kg
[2020-05-13 12:05] LABS: BASOPHILS % (AUTO) 0 % (0-10); EOSINOPHILS # (AUTO) 0.2 10^3/uL (0.0-0.3); EOSINOPHILS % (AUTO) 3 % (0-10); HEMATOCRIT 46 % (35-52); HEMOGLOBIN 16.4 G/DL (11.5-16.0); LYMPHOCYTES # (AUTO) 1.5 X 10^3 (1.0-4.0); LYMPHOCYTES % (AUTO) 28 % (12-44); MEAN CORPUSCULAR HEMOGLOBIN 30 PG (25-34); MEAN CORPUSCULAR HGB CONC 36 G/DL (32-36); MEAN CORPUSCULAR VOLUME 83 FL (80-99); MEAN PLATELET VOLUME 8.8 FL (7.4-10.4); MONOCYTES # (AUTO) 0.5 X 10^3 (0.0-1.0); MONOCYTES % (AUTO) 9 % (0-12); NEUTROPHILS # (AUTO) 3.2 X 10^3 (1.8-7.8); NEUTROPHILS % (AUTO) 61 % (42-75); PLATELET COUNT 386 10^3/uL (130-400); RED CELL DISTRIBUTION WIDTH 13.5 % (10.0-14.5); WHITE BLOOD COUNT 5.3 10^3/uL (4.3-11.0)
[2020-05-13 12:25] LABS: CHLORIDE 104 MMOL/L (98-107); POTASSIUM 3.6 MMOL/L (3.6-5.0); SODIUM 139 MMOL/L (135-145)
[2020-05-13 12:26] LABS: ALBUMIN 4.9 GM/DL (3.2-4.5)
[2020-05-13 12:27] LABS: CALCIUM 10.4 MG/DL (8.5-10.1)
[2020-05-13 12:27] LABS: BILIRUBIN,URINE NEGATIVE (NEGATIVE); CLARITY,URINE SL CLOUDY; COLOR,URINE YELLOW; GLUCOSE, URINE (UA) NEGATIVE (NEGATIVE); KETONES,URINE TRACE (NEGATIVE); LEUKOCYTE ESTERASE ,URINE TRACE (NEGATIVE); NITRITE,URINE NEGATIVE (NEGATIVE); PROTEIN,URINE NEGATIVE (NEGATIVE)
[2020-05-13 12:28] LABS: GLUCOSE 94 MG/DL (70-105); TOTAL PROTEIN 8.2 GM/DL (6.4-8.2)
[2020-05-13 12:29] LABS: CARBON DIOXIDE 22 MMOL/L (21-32)
[2020-05-13 12:30] LABS: BILIRUBIN,TOTAL 0.5 MG/DL (0.1-1.0)
[2020-05-13 12:32] LABS: ALKALINE PHOSPHATASE 87 U/L (40-136); GFR ESTIMATED > 60
[2020-05-13 12:33] LABS: BUN/CREATININE RATIO 8
[2020-05-13 12:34] LABS: SALICYLATE < 5.0 MG/DL (5.0-20.0)
[2020-05-13 12:35] LABS: ACETAMINOPHEN < 10 UG/ML (10-30); ALANINE AMINOTRANSFERASE 11 U/L (0-55)
[2020-05-13 12:37] LABS: BACTERIA,URINE TRACE /HPF; RBC,URINE 0-2 /HPF
[2020-05-13 12:42] LABS: AMPHETAMINE SCREEN, URINE NEGATIVE (NEGATIVE); BARBITURATE SCREEN URINE NEGATIVE (NEGATIVE); BENZODIAZEPINES SCREEN URINE NEGATIVE (NEGATIVE); CANNABINOID SCREEN, URINE NEGATIVE (NEGATIVE); COCAINE SCREEN URINE NEGATIVE (NEGATIVE); METHADONE STAT NEGATIVE (NEGATIVE); METHAMPHETAMINE SCREEN URINE S NEGATIVE (NEGATIVE); OPIATE SCREEN URINE NEGATIVE (NEGATIVE); OXYCODONE STAT NEGATIVE (NEGATIVE); PROPOXYPHENE STAT NEGATIVE (NEGATIVE); TRICYCLIC ANTIDEPRESSANTS SCRE NEGATIVE (NEGATIVE)
[2020-05-13 12:55] LABS: TSH (THYROID ANALYZER) 2.57 UIU/ML (0.35-4.94)
--- OUTSIDE RECORDS SUMMARY | 2020-05-13 12:57 | XMS REPORT ---
Author Author Sania Baez Organization [facility] Address [address] [place] [address] Care Team Providers Care Entry Driver Operator Name Role Phone JODIE Baez Unavailable PROBLEMS Type Condition ICD9-CM Code [id number] Code Onset Dates Condition S tatus SNOMED Code Problem Mood disorder F39 Active 027973 05 ALLERGIES No Information ENCOUNTERS Encounter Location Date Diagnosis [facility] [address] [facility] [id number] [address] [place] [phone] Jul, Viral URI J06.9 and Bilatera l otitis media with effusion H65.93 [facility] [address] [facility] [id number] [address] [place] [phone] March, Mood disorder F39 [facility] [address] [place], [place] [id number] 57 March, Mood disorder F39 [facility] [address] [facility] [id number] [address] [place] [phone] Feb, Mood disorder F39 [facility] [address] [place], [place] [id number] 57 Feb, Mood disorder F39 [facility] [address] [facility] [id number] [address] [place] [phone] Feb, Mood disorder F39 [facility] [address] [id number] [address] [place] [id number] March, Dental examination Z01.20 [facility] [address] [facility] [id number] [address] [place] [phone] Jan, Bronchitis J40 [facility] [address] [facility] [id number] [address] [place] [address] Apr, Constipation 564.00 and Abdo dhiraj pain, right lower quadrant 789.03 [facility] [address] [id number] [address] [place] [phone] 14 Feb, 2015 [facility] [address] [id number] [address] [place] [phone] Feb, [facility] [address] [id number] [address] [place] [phone] Feb, [facility] [address] [id number] [address] [place] [phone] Feb, [facility] [address] [id number] [address] [place] [phone] Jul, [facility] [address] [id number] [address] [place] [phone] 18 Jul, 2013 [facility] [address] [id number] [address] [place] [phone] 16 Jul, 2013 [facility] [address] [id number] [address] [place] [phone] Jul, IMMUNIZATIONS No Known Immunizations SOCIAL HISTORY Never Assessed REASON FOR VISIT PLAN OF CARE VITAL SIGNS Height 61 in 2013-07-23 Weight 142.2 lbs 2013-07-23 Temperature 97.9 degrees Fahrenheit 2013-07-23 Heart Rate 84 bpm 2013-07-23 Respiratory Rate 18 2013-07-23 Blood pressure systolic 110 mmHg 2013-07-23 Blood pressure diastolic 70 mmHg 2013-07-23 MEDICATIONS No Known Medications RESULTS No Results PROCEDURES Procedure Date Ordered Result Body Site TRICHOMONAS VAGIN, DIR PROBE Jul 23, 2013 SCR PAP SMER;NEW PT OBTAIN PREP&CONVY-LAB Jul 23, 2013 CYTOPATH C/V AUTO FLUID REDO Jul 23, 2013 CHYLMD TRACH, DNA, AMP PROBE Jul 23, 2013 URINE TEST Jul 23, 2013 CULTURE, BACTERIA, OTHER Jul 23, 2013 URINALYSIS, AUTO, W/O SCOPE Jul 23, 2013 INSTRUCTIONS MEDICATIONS ADMINISTERED No Known Medications MEDICAL (GENERAL) HISTORY Type Description Date Medical History bronchitis Medical History hives/eczema Surgical History No know Surgical history Hospitalization History No Hospitalization history informati on
--- OUTSIDE RECORDS SUMMARY | 2020-05-13 12:57 | XMS REPORT ---
Author Author Sania Baez Organization [facility] Address [address] [place] [address] Care Team Providers Care Bandoleer Packer Name Role Phone JODIE Baez Unavailable PROBLEMS Type Condition ICD9-CM Code [id number] Code Onset Dates Condition S tatus SNOMED Code Problem Mood disorder F39 Active [id number] ALLERGIES No Information ENCOUNTERS Encounter Location Date Diagnosis [facility] [address] [facility] [id number] [address] [place] [phone] Jul, Viral URI J06.9 and Bilatera l otitis media with effusion H65.93 [facility] [address] [facility] [id number] [address] [place] [phone] March, Mood disorder F39 [facility] [address] [place], [place] [id number] March, Mood disorder F39 [facility] [address] [facility] [id number] [address] [place] [phone] Feb, Mood disorder F39 [facility] [address] [place], [place] [id number] Feb, Mood disorder F39 [facility] [address] [facility] [id number] [address] [place] [phone] Feb, Mood disorder F39 [facility] [address] [id number] [address] [place] [id number] March, Dental examination Z01.20 [facility] [address] [facility] [id number] [address] [place] [phone] Jan, Bronchitis J40 [facility] [address] [facility] [id number] [address] [place] [phone] Apr, Constipation 564.00 and Abdo dhiraj pain, right lower quadrant 789.03 [facility] [address] [id number] [address] [place] [phone] 14 Feb, 2015 [facility] [address] [id number] [address] [place] [phone] Feb, [facility] [address] [id number] [address] [place] [phone] Feb, [facility] [address] [id number] [address] [place] [phone] Feb, [facility] [address] [id number] [address] [place] [phone] 27 Jul, 2013 [facility] [address] [id number] [address] [place] [phone] 18 Jul, 2013 [facility] [address] [facility] [id number] [address] [place] [phone] 16 Jul, 2013 [facility] [address] [id number] [address] [place] [phone] 12 Jul, 2013 IMMUNIZATIONS No Known Immunizations SOCIAL HISTORY Never Assessed REASON FOR VISIT PLAN OF CARE VITAL SIGNS MEDICATIONS No Known Medications RESULTS No Results PROCEDURES No Known procedures INSTRUCTIONS MEDICATIONS ADMINISTERED No Known Medications MEDICAL (GENERAL) HISTORY Type Description Date Medical History bronchitis Medical History hives/eczema Surgical History No know Surgical history Hospitalization History No Hospitalization history informati on
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
--- NOTE | 2020-05-13 13:50 | ED Psychosocial ---
General Chief Complaint: Psych/Social Disorder Stated Complaint: SUICIDAL IDEATION Nursing Triage Note: PT CO OF DEPRESSION, INABLILTY TO LEAVE HOME CANT SLEEP, LOST JOB CANT PAY RENT HAS SOME SUICIDAL IDEATIONS BUT HAS NO PLAN, PT STATES HAS BEEN OUT OF MEDS FOR FEW MONTHS. Source: patient Exam Limitations: no limitations History of Present Illness Date Seen by Provider: May 14, 2020 Time Seen by Provider: 12:03 Initial Comments This 30-year-old young lady presents to the emergency room with complaints of feeling suicidal. She has no specific plan and her comments are vague. She seems largely to be experiencing negative circumstances including loss of job and inability to pay her rent. She is a patient of [facility]. She reports being out of Cymbalta for a month or 2 and out of Seroquel for several days. She is having sleep disturbances. She seems confused about what to do and what direction to take next. She has had problems with addiction in the past and reports using some type of illicit substance about a week ago. Allergies and Home Medications Allergies Coded Allergies: RYANANo Known Allergies (Unverified Allergy, Mild, 05/06/09) Home Medications Amoxicillin/Potassium Clav 1 Each Tablet, 1 EACH PO BID Prescribed by: YANIQUE QUIROZ on 10/05/19 1452 Cephalexin 500 Mg Capsule, 500 MG PO BID Prescribed by: CARLTON ESQUIVEL on 05/13/20 135 Duloxetine HCl 20 Mg Cap, 20 MG PO BID Prescribed by: CARLTON ESQUIVEL on 05/13/20 1354 Quetiapine Fumarate 25 Mg Tablet, 25 MG PO BID Prescribed by: CARLTON ESQUIVEL on 05/13/20 1354 [ Control] , 1 TAB PO DAILY, (Reported) Patient Home Medication List Home Medication List Reviewed: Yes Review of Systems Constitutional: no symptoms reported EENTM: no symptoms reported Respiratory: no symptoms reported Cardiovascular: no symptoms reported Gastrointestinal: no symptoms reported Genitourinary: no symptoms reported : No Musculoskeletal: no symptoms reported Skin: no symptoms reported Psychiatric/Neurological: See HPI Past Upcpwvn-Xfuedi-Trcdzq Hx Past Med/Social Hx: Reviewed Nursing Past Med/Soc Hx Patient Social History Alcohol Use: Regular Use Number of Drinks Today: 0 Alcohol Beverage of Choice: Beer, Whiskey Recreational Drug Use: Yes (HX METH AND POT) Drug of Choice: +IV METH, XANAX, K2, THC, "OTHERS" Smoking Status: Current Everyday Smoker Type Used: Cigarettes 2nd Hand Smoke Exposure: Yes Recent Foreign Travel: No Contact w/Someone Who Travel: No Recent Infectious Disease Expo: No Recent Hopitalizations: No Physical Abuse: No Sexual Abuse: No Immunizations Up To Date Tetanus Booster (TDap): Less than 5yrs Seasonal Allergies Seasonal Allergies: No Past Medical History Surgeries: Yes Orthopedic Respiratory: No Cardiac: No Neurological: No Reproductive Disorders: No Female Reproductive Disorders: Denies Sexually Transmitted Disease: Yes Genitourinary: No Gastrointestinal: No Musculoskeletal: No Endocrine: No HEENT: No Cancer: No Psychosocial: Yes (POLYSUBSTANCE ABUSE, schizoaffective disorder) Anxiety, PTSD, Depression Integumentary: No Blood Disorders: No Family Medical History No Pertinent Family Hx Physical Exam Vital Signs - First Documented 05/13/20 11:30 Temp 36.6 Pulse 90 Resp 18 B/P (MAP) 135/88 (104) Pulse Ox 96 Capillary Refill : Less Than 3 Seconds Height, Weight, BMI Height: 5'1.00" Weight: 115lbs. oz. 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, no motor/sensory deficits, alert, normal mood/affect, oriented x 3, other (Affect flat) Appearance/Memory: appropriate appearance, appropriate insight Behavior/Eye Contact: cooperative, good eye contact, normal speech Thoughts/Hallucinations: other (No overt suicidal thinking in regard to plan) Skin: normal color, warm/dry Progress/Results/Core Measures Results/Orders Lab Results Laboratory Tests Test 05/13/20 11:57 05/13/20 12:13 Range/Units White Blood Count 5.3 4.3-11.0 10^3/uL Red Blood Count 5.49 4.35-5.85 10^6/uL Hemoglobin 16.4 H 11.5-16.0 G/DL Hematocrit 46 35-52 % Mean Corpuscular Volume 83 80-99 FL Mean Corpuscular Hemoglobin 30 25-34 PG Mean Corpuscular Hemoglobin Concent 36 32-36 G/DL Red Cell Distribution Width 13.5 10.0-14.5 % Platelet Count 386 130-400 10^3/uL Mean Platelet Volume 8.8 7.4-10.4 FL Neutrophils (%) (Auto) 61 42-75 % Lymphocytes (%) (Auto) 28 12-44 % Monocytes (%) (Auto) 9 0-12 % Eosinophils (%) (Auto) 3 0-10 % Basophils (%) (Auto) 0 0-10 % Neutrophils # (Auto) 3.2 1.8-7.8 X 10^3 Lymphocytes # (Auto) 1.5 1.0-4.0 X 10^3 Monocytes # (Auto) 0.5 0.0-1.0 X 10^3 Eosinophils # (Auto) 0.2 0.0-0.3 10^3/uL Basophils # (Auto) 0.0 0.0-0.1 10^3/uL Sodium Level 139 135-145 MMOL/L Potassium Level 3.6 3.6-5.0 MMOL/L Chloride Level 104 98-107 MMOL/L Carbon Dioxide Level 22 21-32 MMOL/L Anion Gap 13 5-14 MMOL/L Blood Urea Nitrogen 6 L 7-18 MG/DL Creatinine 0.80 0.60-1.30 MG/DL Estimat Glomerular Filtration Rate > 60 BUN/Creatinine Ratio 8 Glucose Level 94 70-105 MG/DL Calcium Level 10.4 H 8.5-10.1 MG/DL Corrected Calcium 8.5-10.1 MG/DL Total Bilirubin 0.5 0.1-1.0 MG/DL Aspartate Amino Transf (AST/SGOT) 17 5-34 U/L Alanine Aminotransferase (ALT/SGPT) 11 0-55 U/L Alkaline Phosphatase 87 40-136 U/L Total Protein 8.2 6.4-8.2 GM/DL Albumin 4.9 H 3.2-4.5 GM/DL TSH [place] Testing 2.57 0.35-4.94 UIU/ML Serum Test, Qualitative NEGATIVE NEGATIVE Salicylates Level < 5.0 L 5.0-20.0 MG/DL Acetaminophen Level < 10 L 10-30 UG/ML Serum Alcohol < 10 <10 MG/DL Urine Color YELLOW Urine Clarity SL CLOUDY Urine pH 6.0 5-9 Urine Specific [place] 1.025 H 1.016-1.022 Urine Protein NEGATIVE NEGATIVE Urine Glucose (UA) NEGATIVE NEGATIVE Urine Ketones TRACE H NEGATIVE Urine Nitrite NEGATIVE NEGATIVE Urine Bilirubin NEGATIVE NEGATIVE Urine Urobilinogen 0.2 < = 1.0 MG/DL Urine Leukocyte Esterase TRACE H NEGATIVE Urine RBC (Auto) TRACE-L NEGATIVE Urine RBC 0-2 /HPF Urine WBC 5-10 H /HPF Urine Squamous Epithelial Cells 5-10 /HPF Urine Crystals NONE /LPF Urine Bacteria TRACE /HPF Urine Casts NONE /LPF Urine Mucus MODERATE H /LPF Urine Culture Indicated YES Urine Opiates Screen NEGATIVE NEGATIVE Urine Oxycodone Screen NEGATIVE NEGATIVE Urine Methadone Screen NEGATIVE NEGATIVE Urine Propoxyphene Screen NEGATIVE NEGATIVE Urine Barbiturates Screen NEGATIVE NEGATIVE Ur Tricyclic Antidepressants Screen NEGATIVE NEGATIVE Urine Phencyclidine Screen NEGATIVE NEGATIVE Urine Amphetamines Screen NEGATIVE NEGATIVE Urine Methamphetamines Screen NEGATIVE NEGATIVE Urine Benzodiazepines Screen NEGATIVE NEGATIVE Urine Cocaine Screen NEGATIVE NEGATIVE Urine Cannabinoids Screen NEGATIVE NEGATIVE My Orders Orders - CARLTON JENNINGS MD Ua Culture If Indicated (05/13/20 11:15) Cbc With Automated Diff (05/13/20 11:15) Comprehensive Metabolic Panel (05/13/20 11:15) Alcohol (05/13/20 11:15) Drug Screen Stat (Urine) (05/13/20 11:15) Acetaminophen (05/13/20 11:15) Salicylate (05/13/20 11:15) Ed Iv/Invasive Line Start (05/13/20 11:15) Monitor-Rhythm Ecg Trace Only (05/13/20 11:15) Bh Status Checks/Observation Q15M (05/13/20 11:15) Ed Iv/Invasive Line Start (05/13/20 11:15) Hcg,Qualitative Serum (05/13/20 11:15) Thyroid Analyzer (05/13/20 11:57) Urine Culture (05/13/20 12:13) Vital Signs/I&O 05/13/20 13:59 Temp 36.6 Pulse 90 Resp 18 B/P (MAP) 135/88 (104) Pulse Ox 96 Blood Pressure Mean: 104 Progress Progress Note : Progress Note Patient did not seem to be an immediate threat to self or others as she had no specific plan and only had vague comments about suicidal ideation. Her complaints seem to be more situational with running out of medications and losing work. I did check with [facility] and they were unable to provide any assistance with medications as the clinic is closed. They will provide welfare checks through the weekend. Mild urinary tract infection is suspected b ased on urinalysis. Antibiotics were prescribed. Departure Impression Primary Impression: Suicidal ideation Additional Impression: Urinary tract infection Qualified Codes: N39.0 - Urinary tract infection, site not specified Disposition: HOME, SELF-CARE Condition: Stable Departure-Patient Inst. Decision time for Depature: 13:49 Referrals: [facility] (PCP/Family) Primary Care Physician Patient Instructions: Suicide Prevention Add. Discharge Instructions: Restart your medications as soon as possible. Follow-up with a primary care provider and your behavioral health provider on Saturday morning. For your bladder infection start your antibiotics immediately and drink plenty of clear liquids. Review urine culture results with a primary care provider on Saturday. If you feel unsafe because of behavioral health disturbances, please return to the emergency room or call the Save Line at [phone]. All discharge instructions reviewed with patient and/or family. Voiced understanding. Scripts Duloxetine HCl (Cymbalta) 20 Mg Cap 20 MG PO BID, #14 CAP Prov: CARLTON JENNINGS MD 05/13/20 Quetiapine Fumarate (Seroquel) 25 Mg Tablet 25 MG PO BID, #14 TAB Prov: CARLTON JENNINGS MD 05/13/20 Cephalexin (Keflex) 500 Mg Capsule 500 MG PO BID, #14 CAP Prov: CARLTON JENNINGS MD 05/13/20 CARLTON JENNINGS MD May 13, 2020 13:50
[2020-05-13] MEDS ORDERED: QUET25TA PO (13:54)
[2020-05-13] MEDS ORDERED: DULO20CA PO (13:54)
[2020-05-13] MEDS ORDERED: CEPH-507 PO (13:54)
[2020-05-13 13:59] VITALS: BP 135/88
== END 2020-05-13 14:00 | disposition home or self-care (01) ==
LOC: EDUNIT# 11:10 → ER 11:12
DX: R45.851 Suicidal ideations (principal); N39.0 Urinary tract infection, site not specified; F25.9 Schizoaffective disorder, unspecified; F41.9 Anxiety disorder, unspecified; F32.9 Major depressive disorder, single episode, unspecified; F17.210 Nicotine dependence, cigarettes, uncomplicated; Z91.14 Patient's other noncompliance with medication regimen
CPT/HCPCS: 80053; 80306; 81000; 84443; 84703 ×2; 85025; 87088; 99284; G0480 ×3; 36415; 80320; 80329

== ENCOUNTER 2021-05-15 01:09 | Inpatient (IN) | payer MEDICAID ==
[~2021-05-15 01:09] MED LIST changes: +CEPH-507 PO; +DULO20CA PO; +QUET25TA PO
[2021-05-15 20:00] VITALS: BP 124/72
[2021-05-15] MEDS ORDERED: MINERAL OIL CONCENTRATE 99.9% 15 ML UDC TOP PRN (20:30)
[2021-05-15] MEDS ORDERED: TERBUTALINE INJ 1 MG/ML (BRETHINE) AMP SC PRN (20:30)
[2021-05-15 20:43] LABS: BILIRUBIN,URINE NEGATIVE (NEGATIVE); CLARITY,URINE CLOUDY; COLOR,URINE YELLOW; GLUCOSE, URINE (UA) NEGATIVE (NEGATIVE); KETONES,URINE NEGATIVE (NEGATIVE); LEUKOCYTE ESTERASE ,URINE NEGATIVE (NEGATIVE); NITRITE,URINE NEGATIVE (NEGATIVE); PROTEIN,URINE TRACE (NEGATIVE)
[2021-05-15] MEDS ORDERED: D5 LR IV SOLUTION 1,000 ML IV ONE (20:45)
[2021-05-15] MEDS: D5 LR IV SOLUTION 1,000 ML IV SCH (20:46)
[2021-05-15] MEDS: LACTATED RINGERS 1,000 ML IV SCH (20:47)
[2021-05-15 20:54] LABS: BASOPHILS % (AUTO) 0 % (0-10); EOSINOPHILS # (AUTO) 0.2 10^3/uL (0.0-0.3); EOSINOPHILS % (AUTO) 2 % (0-10); HEMATOCRIT 36 % (35-52); HEMOGLOBIN 12.1 g/dL (11.5-16.0); LYMPHOCYTES # (AUTO) 1.4 10^3/uL (1.0-4.0); LYMPHOCYTES % (AUTO) 13 % (12-44); MEAN CORPUSCULAR HEMOGLOBIN 29 pg (25-34); MEAN CORPUSCULAR HGB CONC 34 g/dL (32-36); MEAN CORPUSCULAR VOLUME 87 fL (80-99); MEAN PLATELET VOLUME 9.8 fL (9.0-12.2); MONOCYTES # (AUTO) 0.7 10^3/uL (0.0-1.0); MONOCYTES % (AUTO) 7 % (0-12); NEUTROPHILS % (AUTO) 77 % (42-75); PLATELET COUNT 286 10^3/uL (130-400); WHITE BLOOD COUNT 10.4 10^3/uL (4.3-11.0)
[2021-05-15] MEDS ORDERED: CATHETER FLUSH 10 ML SYR IV SCH (22:00)
[2021-05-15 22:07] LABS: AMPHETAMINE SCREEN, URINE NEGATIVE (NEGATIVE); BARBITURATE SCREEN URINE NEGATIVE (NEGATIVE); BENZODIAZEPINES SCREEN URINE NEGATIVE (NEGATIVE); CANNABINOID SCREEN, URINE NEGATIVE (NEGATIVE); COCAINE SCREEN URINE NEGATIVE (NEGATIVE); METHADONE STAT NEGATIVE (NEGATIVE); METHAMPHETAMINE SCREEN URINE S NEGATIVE (NEGATIVE); OPIATE SCREEN URINE NEGATIVE (NEGATIVE); OXYCODONE STAT NEGATIVE (NEGATIVE); PROPOXYPHENE STAT NEGATIVE (NEGATIVE); TRICYCLIC ANTIDEPRESSANTS SCRE NEGATIVE (NEGATIVE)
[2021-05-15] MEDS ORDERED: LURA20TA PO (22:19)
[2021-05-15] MEDS ORDERED: DOXY25TA56 PO (22:20)
[2021-05-15] MEDS ORDERED: HYDR-3584 PO (22:21)
[2021-05-15 22:31] LABS: BACTERIA,URINE TRACE /HPF; WBC,URINE 0-2 /HPF
[2021-05-15 22:32] LABS: AMORPHOUS SEDIMENT,UR LARGE AMOR URATES /LPF; CALCIUM OXALATE CRYSTALS,UR FEW /LPF; SQUAMOUS EPITHELIAL CELL,UR 25-50 /HPF
[2021-05-15 23:00] VITALS: BP 121/67
[2021-05-16] VITALS (59 sets, daily range): BP systolic 94–150; BP diastolic 6–77
[2021-05-16] MEDS ORDERED: fentaNYL 2 mcg/ml BUPIVA 0.125 100 ML ONE (01:33)
[2021-05-16] MEDS ORDERED: fentaNYL INJ 100 MCG/2 ML AMP ONE ×3 (02:17→14:32)
[2021-05-16] MEDS ORDERED: BUPIVACAINE 0.25% 30 ML (SENSORCAINE) VIAL ONE (02:17)
[2021-05-16] MEDS ORDERED: fentaNYL 2 mcg/ml BUPIVA 0.125 100 ML IV SCH (03:00)
[2021-05-16] MEDS ORDERED: NALOXONE 0.4 MG/ML 1 ML (NARCAN) VIAL IV PRN (03:00)
[2021-05-16] MEDS ORDERED: LACTATED RINGERS 1,000 ML IV ONE ×2 (03:00→22:18)
[2021-05-16] MEDS ORDERED: CATHETER FLUSH 10 ML SYR IV PRN (03:00)
[2021-05-16] MEDS: D5 LR IV SOLUTION 1,000 ML IV SCH (03:18)
[2021-05-16] MEDS ORDERED: OXYTOCIN PRE-MIX DRIP 500 ML IV ONE (10:12)
--- NOTE | 2021-05-16 11:04 | History & Physical-OB ---
OB - Chief Complaint & HPI Date/Time Date of Admission: Date of Admission: May 15, 2021 at 18:55 Date seen by a Provider: May 16, 2021 Time Seen by a Provider: 09:00 Chief Complaint/History OB-Reason for Admission/Chief: Induction of Labor Hx : 1 Hx Para: 0 Expected Date of Delivery: May 14, 2021 Gestational Age in Weeks: 40 Gestational Age in Days: 2 Indication for induction: post dates History of Labs O+, Ab neg Rub Imm HepB/C/HIV/RPR NR GBS neg Allergies and Home Medications Allergies Coded Allergies: NKANo Known Allergies (Unverified Allergy, Mild, 05/06/09) Home Medications Doxylamine Succinate 25 Mg Tablet, 25 MG PO DAILY, (Reported) Last Action: New Order Hydroxyzine HCl 10 Mg Tablet, 10 MG PO DAILY, (Reported) Last Action: New Order Lurasidone HCl 20 Mg Tablet, 20 MG PO DAILY, (Reported) Last Action: New Order [ Control] , 1 TAB PO DAILY, (Reported) Patient Home Medication List Home Medication List Reviewed: Yes OB - History Hx of Present Care: Yes (Limited and spotty appts) Obstetrical Complications: None Medical Complications: Psychiatric (Substance abuse) Obstetrical History Hx : 1 Number of Living Children: 0 Delivery History Hx Blood Disorders: No Patient Past Medical History Substance Abuse Social History/Family History 2nd Hand Smoke Exposure: Yes Immunizations Hepatitis A: Yes Hepatitis B: Yes Tetanus Booster (TDap): Less than 5yrs Rubella: immune RPR/VDRL: Negative GBS Status: Negative HBsAG: Negative OB - Admission Exam Physical Exam Vitals: Vital Signs 05/16/21 05/16/21 05/16/21 07:30 09:30 10:00 Temp 36.6 Pulse 90 Resp 16 B/P (MAP) 120/58 (78) Pulse Ox 97 O2 Delivery Room Air HEENT: NCAT Heart: Rhythm Normal Lungs: Clear Abdomen: Gravid Cervical Dilatation: 7cm Effacement: 100% Station: -2 Membranes: Ruptured Amniotic Fluid: Clear Heart Rate: 140's Accelerations: No Accelerations Decelerations: Variable Decelerations Short Term Variability: Present Intensity: Moderate Andersen Scoring Tool (Modified) Dilation (cm): 1-2cm (1) Effacement (%): 80-100% (3) Descent/Station: -2 (1) Cervix Consistency: Medium(1) Cervix Position: Middle/Mid-Position (1) Andersen Score: 7 Labs Laboratory Tests Test 05/15/21 19:15 05/15/21 20:31 Range/Units Urine Color YELLOW Urine Clarity CLOUDY Urine pH 6.0 5-9 Urine Specific [place] 1.025 H 1.016-1.022 Urine Protein TRACE H NEGATIVE Urine Glucose (UA) NEGATIVE NEGATIVE Urine Ketones NEGATIVE NEGATIVE Urine Nitrite NEGATIVE NEGATIVE Urine Bilirubin NEGATIVE NEGATIVE Urine Urobilinogen 0.2 < = 1.0 MG/DL Urine Leukocyte Esterase NEGATIVE NEGATIVE Urine RBC (Auto) 1+ H NEGATIVE Urine RBC 5-10 H /HPF Urine WBC 0-2 /HPF Urine Squamous Epithelial Cells 25-50 H /HPF Urine Crystals PRESENT H /LPF Urine Calcium Oxalate Crystals FEW H /LPF Urine Amorphous Sediment LARGE [place] URATES H /LPF Urine Bacteria TRACE /HPF Urine Casts NONE /LPF Urine Mucus NEGATIVE /LPF Urine Culture Indicated NO Urine Opiates Screen NEGATIVE NEGATIVE Urine Oxycodone Screen NEGATIVE NEGATIVE Urine Methadone Screen NEGATIVE NEGATIVE Urine Propoxyphene Screen NEGATIVE NEGATIVE Urine Barbiturates Screen NEGATIVE NEGATIVE Ur Tricyclic Antidepressants Screen NEGATIVE NEGATIVE Urine Phencyclidine Screen NEGATIVE NEGATIVE Urine Amphetamines Screen NEGATIVE NEGATIVE Urine Methamphetamines Screen NEGATIVE NEGATIVE Urine Benzodiazepines Screen NEGATIVE NEGATIVE Urine Cocaine Screen NEGATIVE NEGATIVE Urine Cannabinoids Screen NEGATIVE NEGATIVE White Blood Count 10.4 4.3-11.0 10^3/uL Red Blood Count 4.13 3.80-5.11 10^6/uL Hemoglobin 12.1 11.5-16.0 g/dL Hematocrit 36 35-52 % Mean Corpuscular Volume 87 80-99 fL Mean Corpuscular Hemoglobin 29 25-34 pg Mean Corpuscular Hemoglobin Concent 34 32-36 g/dL Red Cell Distribution Width 14.6 H 10.0-14.5 % Platelet Count 286 130-400 10^3/uL Mean Platelet Volume 9.8 9.0-12.2 fL Immature Granulocyte % (Auto) 1 % Neutrophils (%) (Auto) 77 H 42-75 % Lymphocytes (%) (Auto) 13 12-44 % Monocytes (%) (Auto) 7 0-12 % Eosinophils (%) (Auto) 2 0-10 % Basophils (%) (Auto) 0 0-10 % Neutrophils # (Auto) 8.0 H 1.8-7.8 10^3/uL Lymphocytes # (Auto) 1.4 1.0-4.0 10^3/uL Monocytes # (Auto) 0.7 0.0-1.0 10^3/uL Eosinophils # (Auto) 0.2 0.0-0.3 10^3/uL Basophils # (Auto) 0.0 0.0-0.1 10^3/uL Immature Granulocyte # (Auto) 0.1 0.0-0.1 10^3/uL OB - Assessment/Plan/Diagnosis Assessment Assessment: induction of labor Admission Dx Third Trimester 40 week gestation Admission Status: Inpatient Order (span 2 midnights) Reason for Inpatient Admission: Labor Plan Plan: Induction Other Plan 31 yo G1 @ 40.2 wga here for IOL Plan - Cytotec x 1 dose - Will start Pitocin @ 11 am for augmentation - SROM 1 AM - Epidural for pain control - GBS neg Copy Copies To 1: SUDEEP CHASE MD, HOLLY R MD May 16, 2021 11:04
[2021-05-16] MEDS ORDERED: OXYTOCIN PRE-MIX DRIP 500 ML IV SCH ×2 (11:15→15:15)
[2021-05-16] MEDS ORDERED: LACTATED RINGERS 1,000 ML IV SCH ×2 (13:00→22:15)
[2021-05-16] MEDS: LACTATED RINGERS 1,000 ML IV SCH ×2 (13:01→14:06)
[2021-05-16] MEDS ORDERED: CITRIC ACID/SOB CIT (BICITRA) 30 ML UDC ONE (13:37)
[2021-05-16] MEDS ORDERED: FAMOTIDINE 20MG/2ML IV (PEPCID) ONE (13:38)
[2021-05-16] MEDS ORDERED: METOCLOPRAMIDE INJ 10 MG/2 ML (REGLAN) ONE (13:40)
[2021-05-16] MEDS ORDERED: LIDOCAINE PF 2% 5 ML (XYLOCAINE) VIAL ONE (13:46)
--- NOTE | 2021-05-16 13:50 | Labor Progress Note ---
Labor Progress Note Labor Progress Note Date Seen by Provider: May 16, 2021 Time Seen by Provider: 13:00 Subjective: Called by Nurse regarding strip. Pitocin stopped. Objective: SVE: 8/100/-2 with molding Temp 101.2 FHT 150, no accels, late decels and variables, pitocin stopped and continues to have minimal variability Assessment/Plan: Sania Hook is a (31 /Para 1 / 0,Gestational Age (wks)40.2 here for IOL Pitocin turned off due to late decelerations and variable decelerations, continues to have minimal variablilty, Urgent C/s called due to intolerance Dr Quigley updated and on floor Vitals - Labs Vital Signs - I&O Vital Signs Date Time Temp Pulse Resp B/P (MAP) Pulse Ox O2 Delivery O2 Flow Rate FiO2 05/16/21 11:45 91 117/73 (88) Room Air 05/16/21 11:30 93 118/68 (85) Room Air 05/16/21 11:15 88 120/68 (85) Room Air 05/16/21 11:00 37.8 94 127/75 (92) 97 Room Air 05/16/21 10:45 95 118/64 (82) 97 Room Air 05/16/21 10:30 82 120/60 (80) 97 Room Air 05/16/21 10:15 37.8 95 113/71 (85) 97 Room Air 05/16/21 10:00 90 120/58 (78) 97 Room Air 05/16/21 09:45 94 124/63 (83) 97 Room Air 05/16/21 09:30 94 16 117/70 (86) 98 Room Air 05/16/21 09:15 93 128/63 (84) 98 Room Air 05/16/21 09:00 89 98/57 (71) 100 Room Air 05/16/21 08:45 86 103/57 (72) 100 Non Rebreather 05/16/21 08:30 88 112/60 (77) 100 Non Rebreather 05/16/21 08:15 90 123/56 (78) 100 Non Rebreather 05/16/21 08:00 81 120/65 (83) 100 Non Rebreather 05/16/21 07:45 81 119/72 (88) 100 Non Rebreather 05/16/21 07:30 36.6 87 18 99 Non Rebreather 05/16/21 07:00 80 18 109/61 (77) 99 Non Rebreather 05/16/21 06:45 80 18 107/64 (78) 99 Non Rebreather 05/16/21 06:30 79 18 112/65 (81) 98 Non Rebreather 05/16/21 06:15 76 18 99/57 (71) 98 Non Rebreather 05/16/21 06:00 81 18 113/63 (80) 99 Non Rebreather 05/16/21 05:45 83 18 108/52 (70) 98 Non Rebreather 05/16/21 05:30 81 18 118/56 (76) 99 Non Rebreather 05/16/21 05:15 78 18 114/53 (73) 99 Non Rebreather 05/16/21 05:00 79 18 115/56 (75) 99 Non Rebreather 05/16/21 04:45 36.7 78 18 111/62 (78) 99 05/16/21 04:30 86 18 105/62 (76) 94 05/16/21 04:15 90 18 94/52 (66) 94 05/16/21 04:00 83 18 104/56 (72) 95 05/16/21 03:45 95 18 105/59 (74) 95 05/16/21 03:30 87 18 113/65 (81) 95 05/16/21 03:15 84 18 114/64 (81) 99 05/16/21 03:10 82 18 123/56 (78) 99 05/16/21 03:05 98 18 135/6 (49) 100 05/16/21 03:00 96 18 124/60 (81) 98 05/16/21 02:55 93 18 114/65 (81) 97 05/16/21 02:50 82 18 114/65 (81) 99 05/16/21 02:47 83 18 117/62 (80) 99 05/16/21 02:45 85 18 111/63 (79) 98 05/16/21 02:00 92 18 100 05/16/21 01:30 87 18 125/61 (82) 99 05/16/21 01:00 93 18 119/72 (88) 96 05/16/21 00:00 37.0 90 18 120/73 (89) 97 05/15/21 23:00 85 18 121/67 (85) 98 05/15/21 22:00 94 18 97 05/15/21 21:00 94 18 97 05/15/21 20:00 36.5 100 18 124/72 (89) Labs Laboratory Tests 05/15/21 19:15: Urine Color YELLOW, Urine Clarity CLOUDY, Urine pH 6.0, Urine Specific [place] 1.025H, Urine Protein TRACEH, Urine Glucose (UA) NEGATIVE, Urine Ketones NEGA TIVE, Urine Nitrite NEGATIVE, Urine Bilirubin NEGATIVE, Urine Urobilinogen 0.2, Urine Leukocyte Esterase NEGATIVE, Urine RBC (Auto) 1+H, Urine RBC 5-10H, Urine WBC 0-2, Urine Squamous Epithelial Cells 25-50H, Urine Crystals PRESENTH, Urine Calcium Oxalate Crystals FEWH, Urine Amorphous Sediment LARGE [place] URATESH, Urine Bacteria TRACE, Urine Casts NONE, Urine Mucus NEGATIVE, Urine Culture Indicated NO, Urine Opiates Screen NEGATIVE, Urine Oxycodone Screen NEGATIVE, Urine Methadone Screen NEGATIVE, Urine Propoxyphene Screen NEGATIVE, Urine Barbiturates Screen NEGATIVE, Ur Tricyclic Antidepressants Screen NEGATIVE, Urine Phencyclidine Screen NEGATIVE, Urine Amphetamines Screen NEGATIVE, Urine Methamphetamines Screen NEGATIVE, Urine Benzodiazepines Screen NEGATIVE, Urine Cocaine Screen NEGATIVE, Urine Cannabinoids Screen NEGATIVE 05/15/21 20:31: White Blood Count 10.4, Red Blood Count 4.13, Hemoglobin 12.1, Hematocrit 36, Mean Corpuscular Volume 87, Mean Corpuscular Hemoglobin 29, Mean Corpuscular Hemoglobin Concent 34, Red Cell Distribution Width 14.6H, Platelet Count 286, Mean Platelet Volume 9.8, Immature Granulocyte % (Auto) 1, Neutrophils (%) (Auto) 77H, Lymphocytes (%) (Auto) 13, Monocytes (%) (Auto) 7, Eosinophils (%) (Auto) 2, Basophils (%) (Auto) 0, Neutrophils # (Auto) 8.0H, Lymphocytes # (Auto) 1.4, Monocytes # (Auto) 0.7, Eosinophils # (Auto) 0.2, Basophils # (Auto) 0.0, Immature Granulocyte # (Auto) 0.1 DAYANARA ARRIAZA MD May 16, 2021 13:50
[2021-05-16] MEDS ORDERED: OXYTOCIN PRE-MIX DRIP 1,000 ML IV ONE (13:52)
[2021-05-16] MEDS ORDERED: AZITHROMYCIN INJECTION 500 MG/5 ML VIAL ONE (13:54)
[2021-05-16] MEDS ORDERED: WATER (STERILE) FOR INJECTION 10 ML ONE (13:55)
[2021-05-16] MEDS ORDERED: ceFAZolin 2 GM IV Premixed 50 ML IV ONE (14:00)
[2021-05-16] MEDS ORDERED: AZITHROMYCIN INJECTION 500 MG in NS (IVPB) 250 ML IV ONE (14:00)
[2021-05-16] MEDS ORDERED: BUPIVACAINE 0.5% 30 ML (SENSORCAINE) VIAL ONE (14:33)
[2021-05-16] MEDS ORDERED: ONDANSETRON 4 MG/2 ML (SDV) Z0FRAN ONE (14:48)
--- NOTE | 2021-05-16 14:51 | Cesarean Section Operative ---
Procedure Procedure Note Pre-operative Diagnosis: Sania Hook is a 31 /Para 1 / 0,Gestational Age 40 2/7 WEEKS, NON REASSURING STATUS, ARREST OF DILATION Post-operative Diagnosis: same, BODY CORD (AROUND FEET X 2) Procedure: EMERGENCY PRIMARY low transverse section Physician: SORIN MASSEY Estimated blood loss: 300 mL Disposition: stable Findings:/ Viable male infant, Apgars 8/9, weight [], intact placenta, 3vc, normal appearing uterus, tubes, and ovaries. Indications:Sania Hook is a /Para 1 / 0,Gestational Age 40 2/7 WEEKS, NON REASSURING STATUS, ARREST OF DILATION Procedure Details: The patient was induced at [address] Krishnamurthy. She received 1 dose of cytotec and then had SROM at 0100. She had spontaneous contractions after that but pitocin was started about 11 am due to arrest of dilation at 8 cm for over 1 hour. The pitocin was increased to approximately 6 mu before she began have decelerations. These initially improved with the cessation of the pitocin, but continued and became deeper and late. The mother then developed a fever 37.8 approximatley 1200 and subsequently the hearttones became tachycardic and lost the variability. Decelerations continued despite cessation of the pitocin. The decision was made to call me for section. I was called at 1337, arrived at the hospital at 1344. Found that the CS OR on labor and delivery was in use and there was another cs waiting, so we opted to go to the main OR. Room time in the Main OR was 1406 and cut time was 1417, delivery of was 1419. The patient was taken to the operating room and a time out was performed, verifying patient and procedure. After epidural anesthesia was dosed by our anesthesia colleagues, the patient was placed in the dorsal supine with leftward tilt for uterine displacement.~ Her abdomen was then prepped and draped in the typical sterile fashion. A Pfannenstiel skin incision was made using a scalpel and carried down through the underlying fascia. The fascia was incised in the midline and tented up using Pushpa clamps. On both the inferior and superior fascia side the rectus muscle was dissected off bluntly and sharply using Branch scissors. The peritoneum was identified and entered bluntly in the midline. This was then stretched laterally using manual strength. After entering the abdominal cavity and confirming lack of intraperitoneal adhesions, a large Jose retractor was placed and the lower uterine segment was visualized.A scalpel was utilized to make a low transverse uterine incision with return of clear fluid. The 's head was grasped and brought to the level of the incision. There was some amount of difficulty due to the low position of the head. Fundal pressure was applied and was delivered without difficulty. Mouth and nares were suctioned with bulb suction. After the umbilical cord was clamped and cut, the was handed off to the pediatric staff. A sample of cord blood was then obtained. cord gas was sent. The placenta was delivered intact via uterine massage. The uterus was cleared of all clots and debris. The uterine incision was closed using 0 Vicryl in a running locked fashion. A second imbricated layer was placed using 0 Vicryl in a running fashion as well. The bilateral tubes and ovaries appeared normal. The abdominal gutters were cleared of all clots and debris. A final check of the uterine incision showed it to be hemostatic. The peritoneum was closed using 3-0 Vicryl in a running fashion. The fascia was closed with PDS in a running fashion. The subcutaneous space was hemostatic, and irrigated. The subcutaneous space was closed with 0 Plain in several single interrupted stitches. The skin was then closed using 4-0 Monocryl in a running subcuticular fashion. The skin edges were reapproximated together and were hemostatic. A pressure dressing was applied. All sponge, lap and needle counts were correct at the end of the procedure per nursing. Vitals - Labs Vital Signs - I&O Vital Signs Date Time Temp Pulse Resp B/P (MAP) Pulse Ox O2 Delivery O2 Flow Rate FiO2 05/16/21 11:45 91 117/73 (88) Room Air 05/16/21 11:30 93 118/68 (85) Room Air 05/16/21 11:15 88 120/68 (85) Room Air 05/16/21 11:00 37.8 94 127/75 (92) 97 Room Air 05/16/21 10:45 95 118/64 (82) 97 Room Air 05/16/21 10:30 82 120/60 (80) 97 Room Air 05/16/21 10:15 37.8 95 113/71 (85) 97 Room Air 05/16/21 10:00 90 120/58 (78) 97 Room Air 05/16/21 09:45 94 124/63 (83) 97 Room Air 05/16/21 09:30 94 16 117/70 (86) 98 Room Air 05/16/21 09:15 93 128/63 (84) 98 Room Air 05/16/21 09:00 89 98/57 (71) 100 Room Air 05/16/21 08:45 86 103/57 (72) 100 Non Rebreather 05/16/21 08:30 88 112/60 (77) 100 Non Rebreather 05/16/21 08:15 90 123/56 (78) 100 Non Rebreather 05/16/21 08:00 81 120/65 (83) 100 Non Rebreather 05/16/21 07:45 81 119/72 (88) 100 Non Rebreather 05/16/21 07:30 36.6 87 18 99 Non Rebreather 05/16/21 07:00 80 18 109/61 (77) 99 Non Rebreather 05/16/21 06:45 80 18 107/64 (78) 99 Non Rebreather 05/16/21 06:30 79 18 112/65 (81) 98 Non Rebreather 05/16/21 06:15 76 18 99/57 (71) 98 Non Rebreather 05/16/21 06:00 81 18 113/63 (80) 99 Non Rebreather 05/16/21 05:45 83 18 108/52 (70) 98 Non Rebreather 05/16/21 05:30 81 18 118/56 (76) 99 Non Rebreather 05/16/21 05:15 78 18 114/53 (73) 99 Non Rebreather 05/16/21 05:00 79 18 115/56 (75) 99 Non Rebreather 05/16/21 04:45 36.7 78 18 111/62 (78) 99 05/16/21 04:30 86 18 105/62 (76) 94 05/16/21 04:15 90 18 94/52 (66) 94 05/16/21 04:00 83 18 104/56 (72) 95 05/16/21 03:45 95 18 105/59 (74) 95 05/16/21 03:30 87 18 113/65 (81) 95 05/16/21 03:15 84 18 114/64 (81) 99 05/16/21 03:10 82 18 123/56 (78) 99 05/16/21 03:05 98 18 135/6 (49) 100 05/16/21 03:00 96 18 124/60 (81) 98 05/16/21 02:55 93 18 114/65 (81) 97 05/16/21 02:50 82 18 114/65 (81) 99 05/16/21 02:47 83 18 117/62 (80) 99 05/16/21 02:45 85 18 111/63 (79) 98 05/16/21 02:00 92 18 100 05/16/21 01:30 87 18 125/61 (82) 99 05/16/21 01:00 93 18 119/72 (88) 96 05/16/21 00:00 37.0 90 18 120/73 (89) 97 05/15/21 23:00 85 18 121/67 (85) 98 05/15/21 22:00 94 18 97 05/15/21 21:00 94 18 97 05/15/21 20:00 36.5 100 18 124/72 (89) Labs Laboratory Tests 05/15/21 19:15: Urine Color YELLOW, Urine Clarity CLOUDY, Urine pH 6.0, Urine Specific [place] 1.025H, Urine Protein TRACEH, Urine Glucose (UA) NEGATIVE, Urine Ketones NEGATIVE, Urine Nitrite NEGATIVE, Urine Bilirubin NEGATIVE, Urine Urobilinogen 0.2, Urine Leukocyte Esterase NEGATIVE, Urine RBC (Auto) 1+H, Urine RBC 5-10H, Urine WBC 0-2, Urine Squamous Epithelial Cells 25-50H, Urine Crystals PRESENTH, Urine Calcium Oxalate Crystals FEWH, Urine Amorphous Sediment LARGE [place] URATESH , Urine Bacteria TRACE, Urine Casts NONE, Urine Mucus NEGATIVE, Urine Culture Indicated NO, Urine Opiates Screen NEGATIVE, Urine Oxycodone Screen NEGATIVE, Urine Methadone Screen NEGATIVE, Urine Propoxyphene Screen NEGATIVE, Urine Barbiturates Screen NEGATIVE, Ur Tricyclic Antidepressants Screen NEGATIVE, Urine Phencyclidine Screen NEGATIVE, Urine Amphetamines Screen NEGATIVE, Urine Methamphetamines Screen NEGATIVE, Urine Benzodiazepines Screen NEGATIVE, Urine Cocaine Screen NEGATIVE, Urine Cannabinoids Screen NEGATIVE 05/15/21 20:31: White Blood Count 10.4, Red Blood Count 4.13, Hemoglobin 12.1, Hematocrit 36, Mean Corpuscular Volume 87, Mean Corpuscular Hemoglobin 29, Mean Corpuscular Hemoglobin Concent 34, Red Cell Distribution Width 14.6H, Platelet Count 286, Mean Platelet Volume 9.8, Immature Granulocyte % (Auto) 1, Neutrophils (%) (Auto) 77H, Lymphocytes (%) (Auto) 13, Monocytes (%) (Auto) 7, Eosinophils (%) (Auto) 2, Basophils (%) (Auto) 0, Neutrophils # (Auto) 8.0H, Lymphocytes # (Auto) 1.4, Monocytes # (Auto) 0.7, Eosinophils # (Auto) 0.2, Basophils # (Auto) 0.0, Immature Granulocyte # (Auto) 0.1 SORIN MASSEY DO May 16, 2021 14:51
--- NOTE | 2021-05-16 15:08 | Discharge Inst-Women's Service ---
Discharge Inst-Women's Serv Consults/Follow Up Additional Follow Up: Yes (1 week for incision check with Dr. Quigley; 6 weeks for PP exam with Dr. Krishnamurthy) Activity Activity: Activity as Tolerated Driving Instructions: No Driving for 1 Week NO SMOKING: NO SMOKING Nothing Inside Vagina: No Douching, No [place], No Tampons Diet Discharge Diet: No Restrictions Symptoms to Report to DrJaved: Bleeding Excessive, Pain Increased, Fever Over 101 Degrees F, Vaginal Bleeding Increase, Cramps in Feet or Legs, Vaginal Discharge Foul For Any Problems or Questions: Contact Your Physician Skin/Wound Care Infection Signs and Symptoms: Increased Redness, Foul Odor of Wound, Increased Drainage, Skin Itchy or Has a Rash, Increased Swelling, Temperature Above 101 F Operative Area Clean and Dry: Keep Incision Clean/Dry Stitches/[place]/Dermabond: Dermabond Bathing Instructions: SORIN [place] DO May 16, 2021 15:08
[2021-05-16] MEDS ORDERED: ONDANSETRON 4 MG/2 ML (SDV) Z0FRAN IVP PRN (15:15)
[2021-05-16] MEDS ORDERED: morphine INJ 4 MG/ML 1 ML (VIAL/SYRINGE) IVP PRN (15:15)
[2021-05-16] MEDS ORDERED: TETANUS,DIPTH,PERTUSS P/F (BOOSTRIX) 0.5 ML VIAL IM SCH (15:15)
[2021-05-16] MEDS ORDERED: MEASLES,MUMPS,RUBELLA 1 EA INJ SC SCH (15:15)
[2021-05-16] MEDS: KETOROLAC 30 MG/ML VIAL IV SCH ×2 (15:40→22:16)
[2021-05-16] MEDS: AMPICILLIN/SULBACTAM INJECTION 1.5 GM in NS (IVPB) 100 ML IV SCH (18:07)
[2021-05-16] MEDS: IBUPROFEN 600 MG (MOTRIN) TAB PO SCH ×2 (20:04→23:32)
[2021-05-16] MEDS: DOCUSATE SODIUM 100 MG (COLACE) CAP PO SCH (21:21)
[2021-05-16] MEDS: metroNIDAZOLE 500MG/100ML IVPB 100 ML IV SCH (21:21)
[2021-05-16] MEDS: CATHETER FLUSH 10 ML SYR IV SCH (21:21)
[2021-05-16] MEDS ORDERED: CITRIC ACID/SOB CIT (BICITRA) 30 ML UDC PO ONE (21:30)
[2021-05-16] MEDS ORDERED: METOCLOPRAMIDE INJ 10 MG/2 ML (REGLAN) IV ONE (21:30)
[2021-05-16] MEDS ORDERED: FAMOTIDINE 20MG/2ML IV (PEPCID) IV ONE (21:30)
[2021-05-16] MEDS: ACETAMINOPHEN 500 MG TAB (TYLENOL) PO SCH (22:16)
[2021-05-17 00:38] VITALS: BP 122/69
[2021-05-17] MEDS: AMPICILLIN/SULBACTAM INJECTION 1.5 GM in NS (IVPB) 100 ML IV SCH ×4 (00:38→18:13)
[2021-05-17 04:58] VITALS: BP 113/56
[2021-05-17] MEDS: KETOROLAC 30 MG/ML VIAL IV SCH ×2 (04:58→22:21)
[2021-05-17] MEDS: metroNIDAZOLE 500MG/100ML IVPB 100 ML IV SCH ×3 (04:58→22:14)
[2021-05-17] MEDS: ACETAMINOPHEN 500 MG TAB (TYLENOL) PO SCH ×3 (06:48→22:14)
[2021-05-17 07:25] LABS: BASOPHILS % (AUTO) 0 % (0-10); EOSINOPHILS % (AUTO) 0 % (0-10); HEMATOCRIT 29 % (35-52); HEMOGLOBIN 9.6 g/dL (11.5-16.0); LYMPHOCYTES # (AUTO) 1.2 10^3/uL (1.0-4.0); LYMPHOCYTES % (AUTO) 6 % (12-44); MEAN CORPUSCULAR HEMOGLOBIN 29 pg (25-34); MEAN CORPUSCULAR HGB CONC 33 g/dL (32-36); MEAN CORPUSCULAR VOLUME 87 fL (80-99); MONOCYTES # (AUTO) 1.2 10^3/uL (0.0-1.0); MONOCYTES % (AUTO) 6 % (0-12); NEUTROPHILS # (AUTO) 16.2 10^3/uL (1.8-7.8); NEUTROPHILS % (AUTO) 86 % (42-75); PLATELET COUNT 260 10^3/uL (130-400); WHITE BLOOD COUNT 18.8 10^3/uL (4.3-11.0)
[2021-05-17] MEDS: FERROUS SULF 325 MG (IRON) TAB PO SCH (08:54)
[2021-05-17] MEDS: DOCUSATE SODIUM 100 MG (COLACE) CAP PO SCH ×2 (08:54→22:14)
[2021-05-17 09:00] VITALS: BP 112/52
[2021-05-17] MEDS: IBUPROFEN 600 MG (MOTRIN) TAB PO SCH ×3 (12:00→23:44)
[2021-05-17 12:45] VITALS: BP 106/68
--- NOTE | 2021-05-17 12:59 | Postpartum Progress Note ---
Post Op Post-operative Day #1 s/p ELTCS Subjective: Patient is without complaints. Ambulating, voiding after weathers removed. Tolerating a regular diet without nausea or vomiting. Normal lochia. Pain is well controlled with oral pain medications. Passing flatus. 24 hours antibiotics for maternal fever and suspected chorioamnionitis. Afebrile this am. Objective: 05/17/21 04:58 Temp 36.2 Pulse 73 Resp 20 B/P (MAP) 113/56 (75) Pulse Ox 97 O2 Delivery Room Air 05/17/21 00:00 Intake Total 1890 ml Output Total 1280 ml Balance 610 ml Laboratory Tests Test 05/17/21 06:58 Range/Units White Blood Count 18.8 H 4.3-11.0 10^3/uL Red Blood Count 3.36 L 3.80-5.11 10^6/uL Hemoglobin 9.6 #L 11.5-16.0 g/dL Hematocrit 29 L 35-52 % Mean Corpuscular Volume 87 80-99 fL Mean Corpuscular Hemoglobin 29 25-34 pg Mean Corpuscular Hemoglobin Concent 33 32-36 g/dL Red Cell Distribution Width 14.5 10.0-14.5 % Platelet Count 260 130-400 10^3/uL Mean Platelet Volume 10.0 9.0-12.2 fL Immature Granulocyte % (Auto) 1 % Neutrophils (%) (Auto) 86 H 42-75 % Lymphocytes (%) (Auto) 6 L 12-44 % Monocytes (%) (Auto) 6 0-12 % Eosinophils (%) (Auto) 0 0-10 % Basophils (%) (Auto) 0 0-10 % Neutrophils # (Auto) 16.2 H 1.8-7.8 10^3/uL Lymphocytes # (Auto) 1.2 1.0-4.0 10^3/uL Monocytes # (Auto) 1.2 H 0.0-1.0 10^3/uL Eosinophils # (Auto) 0.0 0.0-0.3 10^3/uL Basophils # (Auto) 0.0 0.0-0.1 10^3/uL Immature Granulocyte # (Auto) 0.1 0.0-0.1 10^3/uL Physical Exam: General - Alert and oriented, no apparent distress Abdomen - Soft, appropriately tender to palpation, non-distended, fundus firm at umbilicus Incision - clean, dry and intact; no erythema or induration, no drainage Extremities - no edema, negative Live's bilaterally [] Assessment: [] post-operative day # [], status post []. Recovering well, hemodynamically stable Acute blood loss anemia [] Plan: Routine post-operative care. Encourage breast feeding. Encourage ambulation. VTE prophylaxis: SCDs. Ferrous sulfate supplementation. Plan for discharge [] Vitals - Labs Vital Signs - I&O Vital Signs Date Time Temp Pulse Resp B/P (MAP) Pulse Ox O2 Delivery O2 Flow Rate FiO2 05/17/21 04:58 36.2 73 20 113/56 (75) 97 Room Air 05/17/21 00:38 36.0 74 20 122/69 (86) 96 Room Air 05/16/21 20:30 36.2 83 20 120/64 (82) 98 Room Air 05/16/21 18:24 94 Room Air 05/16/21 17:20 37.2 88 18 123/62 (82) 96 Room Air 05/16/21 16:10 36.9 98 18 122/59 (80) 97 Room Air 05/16/21 15:55 37.8 20 124/65 (84) 95 Room Air 05/16/21 15:55 Room Air 05/16/21 15:50 20 121/68 (85) 95 Room Air 05/16/21 15:42 Room Air 05/16/21 15:40 20 117/68 (84) 97 Room Air 05/16/21 15:35 Room Air 05/16/21 15:30 37.9 18 116/66 (83) 95 Room Air 05/16/21 15:20 20 117/70 (86) 99 Room Air 05/16/21 15:20 Room Air 05/16/21 15:15 20 118/65 (82) 96 Room Air 05/16/21 15:06 Room Air 05/16/21 15:06 38.0 20 115/55 (75) 98 Room Air 05/16/21 13:45 Room Air 05/16/21 13:30 38.5 101 18 150/69 (96) Room Air 05/16/21 13:15 90 134/77 (96) Room Air 05/16/21 13:00 90 130/74 (92) Room Air I & O 05/17/21 07:00 Intake Total 3890 ml Output Total 2780 ml Balance 1110 ml Labs Laboratory Tests 05/17/21 06:58: White Blood Count 18.8H, Red Blood Count 3.36L, Hemoglobin 9.6#L, Hematocrit 29L , Mean Corpuscular Volume 87, Mean Corpuscular Hemoglobin 29, Mean Corpuscular Hemoglobin Concent 33, Red Cell Distribution Width 14.5, Platelet Count 260, Mean Platelet Volume 10.0, Immature Granulocyte % (Auto) 1, Neutrophils (%) (Auto) 86H, Lymphocytes (%) (Auto) 6L, Monocytes (%) (Auto) 6, Eosinophils (%) (Auto) 0, Basophils (%) (Auto) 0, Neutrophils # (Auto) 16.2H, Lymphocytes # (Auto) 1.2, Monocytes # (Auto) 1.2H, Eosinophils # (Auto) 0.0, Basophils # (Auto) 0.0, Immature Granulocyte # (Auto) 0.1 SORIN MASSEY DO May 17, 2021 12:59
--- NOTE | 2021-05-17 13:56 | Anesthesia-Regional Post-Op ---
Regional Patient Condition Mental Status: Alert, Oriented x3 Circulation: Same as Pre-Op Headache: Absent Sensation: Full Recovery Motor Block: Absent Post Op Complications Complications None Follow Up Care/Instructions Patient Instructions None needed. Anesthesia/Patient Condition Patient is doing well, no complaints, stable vital signs, no apparent adverse anesthesia problems. No complications reported per nursing. BENJAMIN LARIOS CRNA May 17, 2021 13:56
[2021-05-17 17:00] VITALS: BP 126/66
[2021-05-17] MEDS: CATHETER FLUSH 10 ML SYR IV SCH ×2 (21:18→21:19)
[2021-05-17 23:44] VITALS: BP 113/53
[2021-05-18 04:59] VITALS: BP 123/90
[2021-05-18] MEDS: IBUPROFEN 600 MG (MOTRIN) TAB PO SCH ×3 (04:59→17:43)
[2021-05-18] MEDS: CATHETER FLUSH 10 ML SYR IV SCH (06:56)
[2021-05-18 07:40] VITALS: BP 114/55
--- NOTE | 2021-05-18 07:57 | Postpartum Progress Note ---
Post Op Post-operative Day #2 s/p ELTCS Subjective: Patient is without complaints. Ambulating, voiding after weathers removed. Tolerating a regular diet without nausea or vomiting. Normal lochia. Pain is well controlled with oral pain medications. Passing flatus. Objective: [] 05/17/21 05/18/21 23:44 04:59 Temp 36.4 36.3 Pulse 88 89 Resp 18 18 B/P (MAP) 113/53 (73) 123/90 (101) Pulse Ox 98 98 O2 Delivery Room Air Room Air 05/18/21 00:00 Intake Total 2120 ml Output Total 1300 ml Balance 820 ml Physical Exam: General - Alert and oriented, no apparent distress Abdomen - Soft, appropriately tender to palpation, non-distended, fundus firm at umbilicus Incision - clean, dry and intact; no erythema or induration, no drainage Extremities - no edema, negative Live's bilaterally Assessment: 1. post-operative day # 2, status post ELTCS. Recovering well, hemodynamically stable 2. Acute blood loss anemia Plan: Routine post-operative care. Encourage breast feeding. Encourage ambulation. VTE prophylaxis: SCDs. Ferrous sulfate supplementation. Plan for discharge Vitals - Labs Vital Signs - I&O Vital Signs Date Time Temp Pulse Resp B/P (MAP) Pulse Ox O2 Delivery O2 Flow Rate FiO2 05/18/21 04:59 36.3 89 18 123/90 (101) 98 Room Air 05/17/21 23:44 36.4 88 18 113/53 (73) 98 Room Air 05/17/21 17:00 36.7 83 18 126/66 (86) 100 Room Air 05/17/21 12:45 36.6 82 18 106/68 (81) 97 Room Air 05/17/21 09:00 36.7 82 18 112/52 (72) 99 Room Air I & O 05/18/21 07:00 Intake Total 2720 ml Output Total 1300 ml Balance 1420 ml SORIN MASSEY DO May 18, 2021 07:57
[2021-05-18] MEDS ORDERED: IBUP-844 PO (08:00)
[2021-05-18] MEDS ORDERED: OXC5T PO ×2 (08:00→08:13)
[2021-05-18] MEDS ORDERED: FERR325T24 PO (08:00)
[2021-05-18] MEDS ORDERED: ACET-93 PO (08:00)
[2021-05-18] MEDS: ACETAMINOPHEN 500 MG TAB (TYLENOL) PO SCH ×2 (09:11→17:43)
[2021-05-18] MEDS: FERROUS SULF 325 MG (IRON) TAB PO SCH (09:11)
[2021-05-18] MEDS: DOCUSATE SODIUM 100 MG (COLACE) CAP PO SCH (09:11)
[2021-05-18 12:25] VITALS: BP 125/71
[2021-05-18 16:58] LABS: BASOPHILS % (AUTO) 0 % (0-10); EOSINOPHILS # (AUTO) 0.3 10^3/uL (0.0-0.3); EOSINOPHILS % (AUTO) 3 % (0-10); HEMATOCRIT 31 % (35-52); HEMOGLOBIN 10.2 g/dL (11.5-16.0); LYMPHOCYTES # (AUTO) 1.5 10^3/uL (1.0-4.0); LYMPHOCYTES % (AUTO) 12 % (12-44); MEAN CORPUSCULAR HEMOGLOBIN 29 pg (25-34); MEAN CORPUSCULAR HGB CONC 33 g/dL (32-36); MEAN CORPUSCULAR VOLUME 88 fL (80-99); MEAN PLATELET VOLUME 9.7 fL (9.0-12.2); MONOCYTES # (AUTO) 0.7 10^3/uL (0.0-1.0); MONOCYTES % (AUTO) 6 % (0-12); NEUTROPHILS # (AUTO) 9.8 10^3/uL (1.8-7.8); NEUTROPHILS % (AUTO) 78 % (42-75); PLATELET COUNT 297 10^3/uL (130-400); WHITE BLOOD COUNT 12.5 10^3/uL (4.3-11.0)
[2021-05-18 17:42] VITALS: BP 121/58
[2021-05-19 00:09] VITALS: BP 121/59
[2021-05-19] MEDS: DOCUSATE SODIUM 100 MG (COLACE) CAP PO SCH ×2 (00:09→08:52)
[2021-05-19] MEDS: IBUPROFEN 600 MG (MOTRIN) TAB PO SCH ×2 (00:09→06:09)
[2021-05-19] MEDS: ACETAMINOPHEN 500 MG TAB (TYLENOL) PO SCH ×2 (02:20→10:50)
[2021-05-19 06:09] VITALS: BP 133/87
[2021-05-19 08:45] VITALS: BP 137/72
[2021-05-19] MEDS: FERROUS SULF 325 MG (IRON) TAB PO SCH (08:52)
== END 2021-05-19 12:50 | disposition home or self-care (01) | DRG 787 ==
LOC: LDRP 18:55 → WS 05-16 16:05
PROVIDERS: ADMIT Family Medicine; ATTEND Family Medicine
PROC: 3E0DXGC Introduction of Other Therapeutic Substance into Mouth and Pharynx, External Approach (ICD-10-PCS; 2021-05-15)
PROC: 10D00Z1 Extraction of Products of Conception, Low, Open Approach (ICD-10-PCS; principal; 2021-05-16 14:06)
DX: O48.0 Post-term pregnancy (principal); D62 Acute posthemorrhagic anemia; O76 Abnormality in fetal heart rate and rhythm complicating labor and delivery; Z3A.40 40 weeks gestation of pregnancy; Z37.0 Single live birth; O62.1 Secondary uterine inertia; O69.89X0 Labor and delivery complicated by other cord complications, not applicable or unspecified; O90.81 Anemia of the puerperium
CPT/HCPCS: 36415; 80306; 81000; 85025; 86850; 86900; 86901; 94664

== ENCOUNTER 2021-09-02 12:56 | Emergency (ER) | payer MEDICAID ==
[~2021-09-02] VITALS: Ht 154 cm; Wt 75.0 kg
[~2021-09-02 12:56] MED LIST changes: +ACET-93 PO; +DOXY25TA56 PO; +FERR325T24 PO; +HYDR-3584 PO; +IBUP-844 PO; +LURA20TA PO; +OXC5T PO
--- NOTE | 2021-09-02 13:39 | ED Psychosocial ---
General Chief Complaint: General Problems/Pain Stated Complaint: POSS MED REACTION Source: patient Exam Limitations: no limitations (SELINA WRIGHT STUDENT) History of Present Illness Date Seen by Provider: Sep 02, 2021 Time Seen by Provider: 13:05 Initial Comments This is Sania a 31 yo female that presented to the ED via private vehicle with the chief complaint of anxiety and associated symptoms that stated this morning. Pt states that symptoms include the feeling of zoning out, vision changes, confusion, minimal chest pain with palpitations, nausea, and tingling in the ti ps of her fingers and toes. Pt states that she general takes 2 seroquel and that helps with her symptoms but she was placed on suboxone 4 days ago due to kratom dependency. She is very worried about medication interactions. After taking Amitriptyline, from an old prescription, she became even more anxious and decided to come in. She has been unable to get an appointment with a mental health provider recently and was prescribed suboxone via a [facility]. Pt is a former meth addict who states she hasn't done meth in over a year. Timing/Duration: just prior to arrival, other (better now) Severity: mild Associated Symptoms: anxiety, impaired concentration (SELINA WRIGHT STUDENT) Allergies and Home Medications Allergies Coded Allergies: NKANo Known Allergies (Unverified Allergy, Mild, 05/06/09) Patient Home Medication List Home Medication List Reviewed: Yes (CARLTON JENNINGS MD) Acetaminophen (Acetaminophen) 500 Mg Tablet, 1,000 MG PO Q8HR Prescribed by: SORIN MASSEY on 05/18/21 0800 Ferrous Sulfate (Ferosul) 325 Mg Tablet, 325 MG PO DAILY@0700 Prescribed by: SORIN MASSEY on 05/18/21 0800 Hydroxyzine HCl (Hydroxyzine HCl) 10 Mg Tablet, 10 MG PO DAILY, (Reported) Entered as Reported by: MARLIN VARGAS on 05/15/212220 Ibuprofen (Ibu) 600 Mg Tablet, 600 MG PO Q6HR Prescribed by: SORIN MASSEY on 05/18/21 0800 Lurasidone HCl (Latuda) 20 Mg Tablet, 20 MG PO DAILY, (Reported) Entered as Reported by: MARLIN VARGAS on 05/15/212218 Oxycodone Hcl (Oxyir Tablet) 5 Mg Tab, 5 MG PO Q4HR Prescribed by: SORIN MASSEY on 05/18/21 0814 Review of Systems Constitutional: see HPI EENTM: see HPI, vision loss Respiratory: no symptoms reported Cardiovascular: see HPI, chest pain, palpitations Gastrointestinal: no symptoms reported Genitourinary: no symptoms reported Musculoskeletal: joint pain, muscle pain Skin: no symptoms reported Psychiatric/Neurological: Anxiety, Emotional Problems, Numbness, Tingling (SELINA WRIGHT [employer] STUDENT) Past Ctjoate-Yjncij-Jipcqs Hx Immunizations Up To Date Tetanus Booster (TDap): Less than 5yrs (SELINA WRIGHT STUDENT) Seasonal Allergies Seasonal Allergies: No (SELINA WRIGHT STUDENT) Past Medical History Surgeries: Yes Orthopedic Respiratory: No Cardiac: No Neurological: No Reproductive Disorders: No Female Reproductive Disorders: Denies Sexually Transmitted Disease: Yes Genitourinary: No Gastrointestinal: No Musculoskeletal: No Endocrine: No HEENT: No Cancer: No Psychosocial: Yes (POLYSUBSTANCE ABUSE, schizoaffective disorder) Anxiety, PTSD, Depression Integumentary: No Blood Disorders: No (SELINA WRIGHT STUDENT) Family Medical History No Pertinent Family Hx (SELINA WRIGHT STUDENT) Physical Exam Vital Signs - First Documented 09/02/21 13:03 Temp 36.6 Pulse 95 Resp 20 B/P (MAP) 140/79 (99) Pulse Ox 98 (CARLTON JENNINGS MD) Capillary Refill : (SELINA WRIGHT STUDENT) Height, Weight, BMI Height: 5'1.00" Weight: 115lbs. oz. 52.470763jc; 24.00 BMI Method:Stated General Appearance: WD/WN, mild distress HEENT: PERRL/EOMI, pharynx normal Neck: non-tender, supple, normal inspection Respiratory: chest non-tender, lungs clear, normal breath sounds, no respiratory distress, no accessory muscle use Cardiovascular: normal peripheral pulses, no edema, no gallop, no murmur, tachycardia Gastrointestinal: normal bowel sounds, non tender, soft Extremities: normal range of motion, non-tender, normal inspection, no pedal edema, no calf tenderness, normal capillary refill Neurologic/Psychiatric: no motor/sensory deficits, alert, normal mood/affect, oriented x 3 Appearance/Memory: appropriate appearance, appropriate insight, neat, no memory impairment Behavior/Eye Contact: cooperative, good eye contact, normal speech Thoughts/Hallucinations: normal thought pattern, no apparent hallucination Skin: normal color, warm/dry Lymphatic: no adenopathy (SELINA WRIGHT MED STUDENT) Progress/Results/Core Measures Results/Orders Vital Signs/I&O 09/02/21 09/02/21 13:03 13:47 Temp 36.6 36.6 Pulse 95 95 Resp 20 20 B/P (MAP) 140/79 (99) 140/79 Pulse Ox 98 98 (CARLTON JENNINGS MD) Departure Impression Primary Impression: Unspecified drug dependence, unspecified Additional Impression: Agitation Disposition: 01 HOME, SELF-CARE Condition: Stable Departure-Patient Inst. Decision time for Depature: 13:41 (CARLTON JENNINGS MD) Referrals: [facility] (PCP/Family) Primary Care Physician Patient Instructions: Drug Abuse and Drug Addiction (DC) Add. Discharge Instructions: Resume taking your medications as previously prescribed. Start weaning off of the Suboxone by taking one quarter dose twice daily for 3 or 4 days and then one quarter dose daily for 3 or 4 days. Establish with your mental health provider as soon as possible. Return to the ER if you are having worsening symptoms. Call with questions or concerns. If you develop thoughts of harming yourself or anyone else, please use the [facility] hotline at [phone] or call 911 or return to the ER. All discharge instructions reviewed with patient and/or family. Voiced understanding. Medical Student Attestation and Attending Note: I have personally interviewed and examined this patient along with FORREST Caldwell. I have reviewed student documentation including history, physical, and assessments. I agree with the documentation except where otherwise noted. Exam: General: Alert, oriented, no acute distress, well developed HEENT: Normocephalic and atraumatic Heart: Regular rate and rhythm without murmur Lungs: Clear to auscultation bilaterally with normal effort Neuropsych: Alert, oriented, no focal deficits, mildly anxious Skin: Warm and dry without rashes After reviewing patient's medications, I encouraged her to resume her usual dose of Seroquel. She did not take her usual second dose of Seroquel last night in favor of taking amitriptyline. There also appears to be a potential interaction with Cymbalta and Suboxone, increasing the potential for serotonin syndrome. I have advised her to try getting off of Suboxone as soon as possible. She is already taking a low dose of 8/2 mg twice daily. I have advised her to half this dose twice daily for 3 or 4 days and then take it once daily for 3 or 4 days. She is in agreement with this plan and feels comfortable with discharge. (CARLTON JENNINGS MD) Copy Copies To 1: KEVIN GLOVER DYLAN MED STUDENT Sep 02, 2021 13:39 CARLTON JENNINGS MD Sep 02, 2021 13:43
[2021-09-02 13:47] VITALS: BP 140/79
== END 2021-09-02 13:46 | disposition home or self-care (01) ==
LOC: EDUNIT# 12:56 → ER 12:59
DX: R45.1 Restlessness and agitation (principal); F19.20 Other psychoactive substance dependence, uncomplicated; F41.9 Anxiety disorder, unspecified; F32.A Depression, unspecified; F25.9 Schizoaffective disorder, unspecified; Z79.899 Other long term (current) drug therapy
CPT/HCPCS: 99281

== ENCOUNTER 2021-10-09 05:38 | Outpatient (CLI) | payer MEDICAID ==
[~2021-10-09] VITALS: Ht 154.9 cm; Wt 74.5 kg
[2021-10-09] MEDS ORDERED: QUET50TA PO (12:10)
[2021-10-09] MEDS ORDERED: PALI3TAB2 PO (12:10)
== END 2021-10-09 12:28 | disposition home or self-care (01) ==
LOC: PREOP 05:38
PROVIDERS: ATTEND Surgery
DX: Z01.818 Encounter for other preprocedural examination (principal)

== ENCOUNTER 2021-10-11 06:58 | Day surgery (SDC) | payer MEDICAID ==
[2021-10-11] VITALS (10 sets, daily range): BP systolic 105–136; BP diastolic 60–89
[~2021-10-11] VITALS: Ht 154.9 cm; Wt 74.5 kg
[~2021-10-11 06:58] MED LIST changes: +PALI3TAB2 PO; +QUET50TA PO
[2021-10-11] MEDS ORDERED: LIDOCAINE/EPI 1%-1:100,000 (XYLOCAINE) 20ML ONE (07:12)
[2021-10-11] MEDS ORDERED: ceFAZolin 2 GM IV Premixed 50 ML IV ONE (07:15)
[2021-10-11 07:23] LABS: BENZODIAZEPINES SCREEN URINE NEGATIVE (NEGATIVE); COCAINE SCREEN URINE NEGATIVE (NEGATIVE)
[2021-10-11 07:24] LABS: AMPHETAMINE SCREEN, URINE POSITIVE (NEGATIVE); BARBITURATE SCREEN URINE NEGATIVE (NEGATIVE); CANNABINOID SCREEN, URINE NEGATIVE (NEGATIVE); METHADONE STAT NEGATIVE (NEGATIVE); METHAMPHETAMINE SCREEN URINE S NEGATIVE (NEGATIVE); OPIATE SCREEN URINE NEGATIVE (NEGATIVE); OXYCODONE STAT NEGATIVE (NEGATIVE); PROPOXYPHENE STAT NEGATIVE (NEGATIVE); TRICYCLIC ANTIDEPRESSANTS SCRE NEGATIVE (NEGATIVE)
[2021-10-11] MEDS ORDERED: ONDANSETRON 4 MG/2 ML (SDV) Z0FRAN ONE (07:29)
[2021-10-11] MEDS ORDERED: ROCURONIUM 50 MG/5 ML (ZEMURON) VIAL IV ONE (07:29)
[2021-10-11] MEDS ORDERED: LIDOCAINE PF 2% 5 ML (XYLOCAINE) VIAL ONE ×2 (07:29→07:30)
[2021-10-11] MEDS ORDERED: fentaNYL INJ 100 MCG/2 ML AMP ONE ×2 (07:29→09:24)
[2021-10-11] MEDS ORDERED: proPOfol 200 MG/20 ML (DIPRIVAN) VIAL IV ONE (07:29)
[2021-10-11] MEDS ORDERED: SEVOFLURANE (ULTANE) 15 ML INHAL SOLN ONE (07:29)
[2021-10-11] MEDS ORDERED: IOHEXOL 300 MG/ML 30 ML (OMNIPAQUE 300) VIAL INJ ONE (07:30)
[2021-10-11] MEDS ORDERED: MIDAZOLAM 2 MG/2 ML (VERSED) VIAL ONE (07:30)
[2021-10-11] MEDS: LACTATED RINGERS 1,000 ML IV PRN ×2 (08:08→08:42)
--- NOTE | 2021-10-11 08:15 | Progress Note-Pre Operative ---
Pre-Operative Progress Note H&P Reviewed The H&P was reviewed, patient examined and no changes noted. Time Seen by Provider: 08:07 Date H&P Reviewed: Oct 11, 2021 Time H&P Reviewed: 08:07 Pre-Operative Diagnosis: Cholelithiasis/Cholecystitis KRISTOPHER ROBERTS DO Oct 11, 2021 08:15
[2021-10-11] MEDS ORDERED: DULO30CA3 PO (08:26)
[2021-10-11] MEDS ORDERED: NEOSTIGMINE 3 MG/3 ML VIAL ONE (09:08)
[2021-10-11] MEDS ORDERED: GLYCOPYRROLATE 0.2 MG/ML (ROBINUL) 2 ML VIAL ONE (09:08)
--- NOTE | 2021-10-11 09:16 | Progress Note-Post Operative ---
Post-Operative Progess Note Surgeon (s)/L[employer] Kil[employer] Recausticizing Operator (s) Surgeon KRISTOPHER ROBERTS DO [employer] And Recausticizing Operator: KAYLIN Cabrera Pre-Operative Diagnosis Cholelithiasis/Cholecystitis Post-Operative Diagnosis same Procedure & Operative Findings Date of Procedure 10/11/21 Procedure Performed/Findings PROCEDURE: Laparoscopic cholecystectomy with intraoperative cholangiogram. COMPLICATIONS: None. PROCEDURE: The patient was taken to the operating suite and was prepped and draped in sterile fashion. A surgical pause was performed. Just superior to the umbilicus, a 12 mm incision was made. Dissection was taken down to the fascia, which was then scored and grasped with a Pushpa and the abdomen was then entered. A 0 Vicryl suture was placed in a [id number] fashion and a Novoa trocar was placed and secured. Pneumoperitoneum was achieved. A 5mm trochar place in the subxyphoid and 2 in the right upper quadrant. The gallbladder was then grasped and elevated. Noted adhesions to the gallbladder of omentum and the duodenum; these are usually indicative of previous gallbladder attacks. The cystic duct, and cystic artery were then dissected out. Clip was placed on the distal portion of the cystic duct which was then partially transected. An arrow catheter was inserted into the duct. The cholangiogram was then performed. No filing defects and contrast made its way into the duodenum. Catheter removed. Clips were placed on proximal portion of the cystic duct and then the duct was then transected. Clips were placed along the proximal and distal portion of the cystic artery which was then transected. Hook cautery was used to dissect the gallbladder from the gallbladder fossa achieving hemostasis. The gallbladder was placed in an Endobag and removed through the 12 mm trocar site. The abdomen was then reinspected. Copious amounts of irrigation were used to irrigate the abdomen and there were no signs of active bleeding. Hemostasis had been achieved. The 12 mm fascial defect was then closed with 0 Vicryl suture that had been placed in a [id number]-[id number] fashion. The abdomen was then desufflated, the trocars were removed. The abdomen was then washed and dried. The skin was then closed using 4-0 Monocryl in a subcuticular fashion. The abdomen was washed and dried and Skin Affix was place over incisions. Patient tolerated the procedure well without any complications and was taken to the recovery room in stable condition. Anesthesia Type GET Estimated Blood Loss Estimated blood loss (mL): scant Specimens/Packing Specimens Removed GB and contents KRISTOPHER ROBERTS DO Oct 11, 2021 09:16
[2021-10-11] MEDS ORDERED: ACHD5005 PO (09:17)
--- NOTE | 2021-10-11 09:19 | Discharge Inst-Surgical ---
Discharge Inst-Surgical Depart Medication/Instructions New, Converted or Re-Newed RX: Transmitted to Pharmacy Patient Instructions Follow up Appt: Make appointment for 1 week. [phone] Instructions: No lifting greater than 20 pounds. No strenuous activity. May shower in 24 hours, no tub bath or soaking. Use incentive spirometer at home as directed. No Smoking Skin/Wound Care: May remove bandages in am. You need to leave the Dermabond on incision it will fall off on it's own. Symptoms to Report: Appetite Changes, Extremity Discoloration, Numbness/Tingling, Swelling Increased, Bleeding Excessive, Eyesight Changes, Pain Increased, Urine Color Change, Constipation(Persistent), Fever over 101 degree F, Pain/Pressure in chest, Urinating Difficulty, Cough Up/Vomit Blood, Heart Beat Irreg/Pounding, Pain/Pressure in jaw, Cramps in feet or legs, Lightheadedness, Pain/Pressure in shoulder, Diarrhea(Persistent), Memory Changes Suddenly, Questions/Concerns, Weight gain consecutive days, Dizziness/Fainting, Nausea/Vomiting, Shortness of Breath, Weight gain over 2 pounds If questions or concerns contact your physician Or seek help at emergency department. Activity Activity as Tolerated: Yes Activity Instructions: Avoid Stress to Incision Driving Instructions: No Driving/Refer to Diet Discharge Diet: Avoid Fatty Foods, Low Fat/Low Cholesterol Diet After 24 Hours: Clear Liquid if Nauseous If Any Problems/Questions/Issu: Contact Your Physician, Go to Emergency Room Skin/Wound Care Infection Signs and Symptoms: Increased Redness, Foul Odor of Wound, Increased Drainage, Skin Itchy or Has a Rash, Increased Swelling, Temperature Above 101 F Wound Care Comment: Heating pad to shoulder or neck for pain tonight Bathing Instructions: Shower Stitches/Parth/Dermabond Dis: Dermabond Ice Pack: Ice On and Off Site KRISTOPHER ROBERTS DO Oct 11, 2021 09:19
--- NOTE | 2021-10-11 09:27 | Anesthesia-General Post-Op ---
General Patient Condition Mental Status/LOC: Same as Preop Cardiovascular: Satisfactory Nausea/Vomiting: Absent Respiratory: Satisfactory Pain: Controlled Complications: Absent Post Op Complications Complications None Follow Up Care/Instructions Patient Instructions None needed. Anesthesia/Patient Condition Patient Condition Patient is doing well, no complaints, stable vital signs, no apparent adverse anesthesia problems. No complications reported per nursing. LA NENA LANDEROS CRNA Oct 11, 2021 09:26
[2021-10-11] MEDS ORDERED: PROMETHAZINE INJ 25 MG/ML (PHENERGAN) AMP IVP ONE (09:30)
[2021-10-11] MEDS ORDERED: ONDANSETRON 4 MG/2 ML (SDV) Z0FRAN IVP PRN (09:30)
[2021-10-11] MEDS ORDERED: MEPERIDINE (DEMEROL) INJ 50 MG/ML IVP ONE (09:30)
[2021-10-11] MEDS ORDERED: HYDROmorphone 2 MG/ML VIAL (DILAUDID) IV ONE (09:30)
[2021-10-11] MEDS ORDERED: morphine INJ 10 MG/ML 1ML (SYR OR VIAL) IVP ONE (09:30)
[2021-10-11] MEDS ORDERED: fentaNYL INJ 100 MCG/2 ML AMP IVP ONE (09:30)
[2021-10-11] MEDS ORDERED: PROMETHAZINE INJ 25 MG/ML (PHENERGAN) AMP ONE (09:40)
[2021-10-11] MEDS ORDERED: MEPERIDINE (DEMEROL) INJ 50 MG/ML ONE (09:40)
--- NOTE | 2021-10-11 09:44 | Diagnostic Imaging Report ---
Result: History: 31 years-old Female with laparoscopic cholecystectomy, cholangiogram. Comparison: None. Technique: 23 intraoperative fluoroscopic images of the abdomen in the frontal projection. Fluoroscopic Time: 6 seconds Findings: Intraoperative fluoroscopic images were obtained during postcholecystectomy cholangiogram, demonstrating normal contrast flow through the common bile duct and into the duodenum with no persistent filling defect or biliary dilatation. Impression: Unremarkable postcholecystectomy cholangiogram. Dictated by: Dictated on workstation # [id number]
[2021-10-11] MEDS ORDERED: HYDROcodone/APAP 5 MG/325 MG (LORTAB) TAB PO ONE (10:45)
[2021-10-11] MEDS ORDERED: HYDROcodone/APAP 5 MG/325 MG (LORTAB) TAB ONE (10:53)
== END 2021-10-11 11:30 | disposition home or self-care (01) ==
LOC: SDC 06:58
PROVIDERS: ATTEND Surgery
DX: K80.10 Calculus of gallbladder with chronic cholecystitis without obstruction (principal); K21.9 Gastro-esophageal reflux disease without esophagitis; F32.A Depression, unspecified; F41.9 Anxiety disorder, unspecified; F43.10 Post-traumatic stress disorder, unspecified; F25.9 Schizoaffective disorder, unspecified; Z87.891 Personal history of nicotine dependence; Z79.899 Other long term (current) drug therapy; Z11.2 Encounter for screening for other bacterial diseases
CPT/HCPCS: 76000; 80306; 84703; 87081; 88304

== ENCOUNTER 2022-06-20 19:33 | Emergency (ER) | payer MEDICAID ==
[~2022-06-20] VITALS: Ht 154.9 cm; Wt 72.6 kg
[~2022-06-20 19:33] MED LIST changes: +ACHD5005 PO; +DULO30CA3 PO
[2022-06-20 19:36] VITALS: BP 136/85
--- NOTE | 2022-06-20 19:55 | ED Psychosocial ---
General Chief Complaint: Psych/Social Disorder Stated Complaint: SI Source: patient Exam Limitations: no limitations (ESTEFANY FRANCOIS) History of Present Illness Date Seen by Provider: Jun 20, 2022 Time Seen by Provider: 19:52 Initial Comments Patient is a 32-year-old female with a history of schizoaffective disorder, bipolar, PTSD, depression who presents ED by EMS for [facility] for psych evaluation. Patient states she has almost nearly daily suicidal thoughts without any plan. She states her grandma about a week ago. She reports increase feeling of hopelessness. She states over the past 6 months she has felt guilt, shame and fear. She reports irrational fear of doing things such as going outside or going into public. She reports irrational thinking. She has been on Invega 3 mg daily but states this medication is at too high of a dose. She was attempting to follow-up with her psychiatrist but was not able to follow-up. She reports visual hallucinations of feeling someone is near her such as behind her. Denies of any auditory hallucinations. History of meth use several years ago. SI attempt in 2014 required admission. History of inpatient in the past. Denies chest pain, cough, shortness of breath, vomiting, diarrhea fever, chills (ESTEFANY FRANCOIS) Allergies and Home Medications Allergies Coded Allergies: NKANo Known Allergies (Unverified Allergy, Mild, 05/06/09) Patient Home Medication List Home Medication List Reviewed: Yes (ESTEFANY FRANCOIS) Duloxetine HCl (Cymbalta) 30 Mg Capsule.dr, 30 MG PO Q48H, (Reported) Entered as Reported by: VIJI ZHOU on 10/11/21 0826 Hydrocodone Bit/Acetaminophen (HYDROcodone/APAP 5 MG/325 MG TAB) 1 Tab Tab, 1 TAB PO Q8H PRN for PAIN-MODERATE (5-7) Prescribed by: KRISTOPHER ROBERTS on 10/11/21 0918 Paliperidone (Invega) 3 Mg Tab.er.24, 3 MG PO DAILY, (Reported) Entered as Reported by: ISRA QUINN on 10/09/21 1210 Quetiapine Fumarate (Seroquel) 50 Mg Tablet, 50 MG PO HS, (Reported) Entered as Reported by: ISRA QUINN on 10/09/21 1210 Review of Systems Constitutional: No chills, No diaphoresis, No malaise EENTM: No blurred vision, No double vision Respiratory: No cough Cardiovascular: No chest pain Gastrointestinal: No abdominal pain, No diarrhea, No nausea, No vomiting Genitourinary: No decreased output, No discharge Musculoskeletal: No back pain Skin: No change in color, No change in hair/nails (ESTEFANY FRANCOIS) All Other Systems Reviewed Negative Unless Noted: Yes (ESTEFANY FRANCOIS) Past Hdhitgc-Rwqplb-Qhjqln Hx Immunizations Up To Date Tetanus Booster (TDap): Less than 5yrs First/Initial COVID19 Vaccinat: yes Second COVID19 Vaccination Lucio: yes (ESTEFANY FRANCOIS) Seasonal Allergies Seasonal Allergies: No (ESTEFANY FRANCOIS) Past Medical History Surgeries: Yes Section Respiratory: No Currently Using CPAP: No Currently Using BIPAP: No Cardiac: No Neurological: No Reproductive Disorders: No Female Reproductive Disorders: Denies Sexually Transmitted Disease: Yes Genitourinary: No Gastrointestinal: Yes Gall Bladder Disease Musculoskeletal: No Endocrine: No HEENT: No Cancer: No Psychosocial: Yes (POLYSUBSTANCE ABUSE, schizoaffective disorder) Anxiety, PTSD, Depression Integumentary: No Blood Disorders: No (ESTEFANY FRANCOIS) Family Medical History No Pertinent Family Hx (ESTEFANY FRANCOIS) Physical Exam Vital Signs - First Documented 06/20/22 19:36 Temp 37.8 Pulse 83 Resp 20 B/P (MAP) 136/85 (102) Pulse Ox 98 (CARLOTN JENNINGS MD) Capillary Refill : (ESTEFANY FRANCOIS) Height, Weight, BMI Height: 5'1.00" Weight: 115lbs. oz. 52.347911yb; 31.04 BMI Method:Stated General Appearance: WD/WN, no apparent distress HEENT: PERRL/EOMI, normal ENT inspection, TMs normal, pharynx normal Neck: non-tender, full range of motion, supple Respiratory: chest non-tender, lungs clear, normal breath sounds, no respiratory distress, no accessory muscle use Cardiovascular: regular rate, rhythm, no edema, no gallop, no JVD Gastrointestinal: normal bowel sounds, non tender, soft, no organomegaly Extremities: normal range of motion, non-tender, normal inspection, no pedal edema Neurologic/Psychiatric: [facility] II-XII nml as tested, no motor/sensory deficits, alert, normal mood/affect, oriented x 3 Appearance/Memory: appropriate appearance, appropriate insight Behavior/Eye Contact: cooperative, good eye contact, normal speech Thoughts/Hallucinations: normal thought pattern, no apparent hallucination, other (Suicidal thoughts without plan) Skin: normal color, warm/dry Lymphatic: no adenopathy (ESTEFANY FRANCOIS) Suicide Risk Suicide Risk Suicide Risk Level / RN Screen: Moderate Low Suicide Risk Level []Suicidal Ideation WITHOUT method, intent, plan or behavior more than a month ago []]Modifiable risk factors and strong protective factors []No reported history of suicidal ideation or behavior []Patient reports/exhibits symptoms consistent with psychosis []Patient reports a plan that would be unrealistic/impossible to complete and intent []Suicide attempt prior to arrival (Indicates at LEAST Low Suicide Risk, consider other risk factors) Moderate Suicide Risk Level: [x]Suicidal ideation with method, WITHOUT plan, intent or behavior in the past month [c]Multiple risk factors and few protective factors []Patient reports intent to follow through on plan to end life if allowed to leave hospital, and has attempted to elope from the hospital High Suicide Risk Level: [] Suicidal ideation with intent or intent with a plan in the past month [] Patient has harmed self or attempted suicide while in the hospital [] Patient has hx of or current Command Auditory hallucinations to harm self or others that they follow without hesitation [] Patient refuses to disclose plan, and indicates intent to complete [] Patient reports plan that is possible to accomplish and/or has means to complete Risk factors supporting recommendation: [] Non-compliance with treatment (acute or chronic) [] Patient has access to or owns firearms and/or stockpiled medications [] Hx Impulsive behavior [] Pending incarceration or homelessness [] Sexual abuse [] Family history and/or exposure to suicide [] Adverse childhood experiences [] Exposure to violence or negative socio-political cultural, and economic forces [] Current or hx of substance use/abuse [] Chronic physical pain or other acute medical problem (AIDS, COPD, Cancer, etc) [] Perceived burden on family or others [] Patient has attempted to elope [] Unable to answer and/or unable to identify [] Refuses to agree to a safety plan Protective Factors supporting recommendation: [] Identifies reasons for living [] Future plans/goals [] Engaged in work or School [] Good family support network [] Good social support network [] Responsibility to family [] Belief that suicide is immoral, against their moravian beliefs [] High spirituality and involvement in christianity community [] Fear of or dying due to pain and suffering [c] Established outpt psychiatric services [] Unable to answer and/or unable to identify Risk Assessment Tool Score: Moderate (ESTEFANY FRANCOIS) Progress/Results/Core Measures Results/Orders Lab Results Laboratory Tests Test 06/20/22 19:46 06/20/22 19:57 06/20/22 20:00 Range/Units Influenza Type A (RT-PCR) Not Detected Not Detecte Influenza Type B (RT-PCR) Not Detected Not Detecte SARS-CoV-2 RNA (RT-PCR) Not Detected Not Detecte White Blood Count 7.5 4.3-11.0 10^3/uL Red Blood Count 5.19 H 3.80-5.11 10^6/uL Hemoglobin 14.8 11.5-16.0 g/dL Hematocrit 43 35-52 % Mean Corpuscular Volume 82 80-99 fL Mean Corpuscular Hemoglobin 29 25-34 pg Mean Corpuscular Hemoglobin Concent 35 32-36 g/dL Red Cell Distribution Width 13.0 10.0-14.5 % Platelet Count 401 H 130-400 10^3/uL Mean Platelet Volume 9.0 9.0-12.2 fL Immature Granulocyte % (Auto) 0 % Neutrophils (%) (Auto) 63 42-75 % Lymphocytes (%) (Auto) 28 12-44 % Monocytes (%) (Auto) 5 0-12 % Eosinophils (%) (Auto) 3 0-10 % Basophils (%) (Auto) 1 0-10 % Neutrophils # (Auto) 4.7 1.8-7.8 10^3/uL Lymphocytes # (Auto) 2.1 1.0-4.0 10^3/uL Monocytes # (Auto) 0.4 0.0-1.0 10^3/uL Eosinophils # (Auto) 0.2 0.0-0.3 10^3/uL Basophils # (Auto) 0.0 0.0-0.1 10^3/uL Immature Granulocyte # (Auto) 0.0 0.0-0.1 10^3/uL Sodium Level 141 135-145 MMOL/L Potassium Level 3.5 L 3.6-5.0 MMOL/L Chloride Level 105 98-107 MMOL/L Carbon Dioxide Level 21 21-32 MMOL/L Anion Gap 15 H 5-14 MMOL/L Blood Urea Nitrogen 8 7-18 MG/DL Creatinine 0.86 0.60-1.30 MG/DL Estimat Glomerular Filtration Rate 93 BUN/Creatinine Ratio 9 Glucose Level 123 H 70-105 MG/DL Calcium Level 9.7 8.5-10.1 MG/DL Corrected Calcium 9.3 8.5-10.1 MG/DL Total Bilirubin 0.3 0.1-1.0 MG/DL Aspartate Amino Transf (AST/SGOT) 20 5-34 U/L Alanine Aminotransferase (ALT/SGPT) 27 0-55 U/L Alkaline Phosphatase 117 40-136 U/L Total Protein 7.7 6.4-8.2 GM/DL Albumin 4.5 3.2-4.5 GM/DL Salicylates Level < 5.0 L 5.0-20.0 MG/DL Acetaminophen Level < 10 L 10-30 UG/ML Serum Alcohol < 10 <10 MG/DL Urine Color YELLOW Urine Clarity CLEAR Urine pH 6.0 5-9 Urine Specific [place] >=1.030 1.016-1.022 Urine Protein NEGATIVE NEGATIVE Urine Glucose (UA) NEGATIVE NEGATIVE Urine Ketones NEGATIVE NEGATIVE Urine Nitrite NEGATIVE NEGATIVE Urine Bilirubin NEGATIVE NEGATIVE Urine Urobilinogen 0.2 < = 1.0 MG/DL Urine Leukocyte Esterase NEGATIVE NEGATIVE Urine RBC (Auto) NEGATIVE NEGATIVE Urine RBC NONE /HPF Urine WBC 0-2 /HPF Urine Squamous Epithelial Cells 10-25 H /HPF Urine Crystals NONE /LPF Urine Bacteria MODERATE H /HPF Urine Casts NONE /LPF Urine Mucus LARGE H /LPF Urine Culture Indicated NO Urine Opiates Screen NEGATIVE NEGATIVE Urine Oxycodone Screen NEGATIVE NEGATIVE Urine Methadone Screen NEGATIVE NEGATIVE Urine Propoxyphene Screen NEGATIVE NEGATIVE Urine Barbiturates Screen NEGATIVE NEGATIVE Ur Tricyclic Antidepressants Screen NEGATIVE NEGATIVE Urine Phencyclidine Screen NEGATIVE NEGATIVE Urine Amphetamines Screen NEGATIVE NEGATIVE Urine Methamphetamines Screen NEGATIVE NEGATIVE Urine Benzodiazepines Screen NEGATIVE NEGATIVE Urine Cocaine Screen NEGATIVE NEGATIVE Urine Cannabinoids Screen NEGATIVE NEGATIVE (CARLTON JENNINGS MD) Departure Communication (PCP) Patient with a history of schizoaffective, depression, anxiety, PTSD who has been on Invega not currently taking who presents ED with irrational thoughts, suicidal thoughts without plan. Patient was brought to ED by EMS from [facility] for psych evaluation. She denies of any specific plan for her suicidal thoughts. She reports daily thoughts which is normal for her. She has not been able to see her psychiatrist discussed her medication which she believes was making her sick. She was requesting a medication change and evaluation. She is considered moderate risk at this time. 15-minute checks. Patient lab work returned unremarkable. Medically cleared. Before evaluation patient left without discussing with me why she was leaving. Patient told the nursing staff that she needed to go for personal reasons and all she wanted was medication changes. She states she would not act upon the suicidal thoughts and had appropriate safety plan at home. This once again was not discussed with patient before she left. PD was contacted regarding patient leaving. (ESTEFANY FRANCOIS) Impression Primary Impression: Suicidal ideation Disposition: 07 AGAINST MEDICAL ADVICE Condition: Unchanged Departure-Patient Inst. Referrals: [facility] [place]Family) Primary Care Physician ATTENDING PHYSICIAN NOTE: I was physically present as attending physician in the emergency department during the care of this patient, but I was not directly involved in the decision making or delivery of care for this patient. (CARLTON JENNINGS MD) ESTEFANY FRANCOIS Jun 20, 2022 19:55 CARLTON JENNINGS MD Jun 21, 2022 08:33
[2022-06-20 20:04] LABS: BASOPHILS % (AUTO) 1 % (0-10); EOSINOPHILS # (AUTO) 0.2 10^3/uL (0.0-0.3); EOSINOPHILS % (AUTO) 3 % (0-10); HEMATOCRIT 43 % (35-52); HEMOGLOBIN 14.8 g/dL (11.5-16.0); LYMPHOCYTES # (AUTO) 2.1 10^3/uL (1.0-4.0); LYMPHOCYTES % (AUTO) 28 % (12-44); MEAN CORPUSCULAR HEMOGLOBIN 29 pg (25-34); MEAN CORPUSCULAR HGB CONC 35 g/dL (32-36); MEAN CORPUSCULAR VOLUME 82 fL (80-99); MONOCYTES # (AUTO) 0.4 10^3/uL (0.0-1.0); MONOCYTES % (AUTO) 5 % (0-12); NEUTROPHILS # (AUTO) 4.7 10^3/uL (1.8-7.8); NEUTROPHILS % (AUTO) 63 % (42-75); PLATELET COUNT 401 10^3/uL (130-400); WHITE BLOOD COUNT 7.5 10^3/uL (4.3-11.0)
[2022-06-20 20:09] LABS: BILIRUBIN,URINE NEGATIVE (NEGATIVE); CLARITY,URINE CLEAR; COLOR,URINE YELLOW; GLUCOSE, URINE (UA) NEGATIVE (NEGATIVE); KETONES,URINE NEGATIVE (NEGATIVE); LEUKOCYTE ESTERASE ,URINE NEGATIVE (NEGATIVE); NITRITE,URINE NEGATIVE (NEGATIVE); PROTEIN,URINE NEGATIVE (NEGATIVE)
[2022-06-20 20:25] LABS: AMPHETAMINE SCREEN, URINE NEGATIVE (NEGATIVE); BARBITURATE SCREEN URINE NEGATIVE (NEGATIVE); BENZODIAZEPINES SCREEN URINE NEGATIVE (NEGATIVE); CANNABINOID SCREEN, URINE NEGATIVE (NEGATIVE); COCAINE SCREEN URINE NEGATIVE (NEGATIVE); METHADONE STAT NEGATIVE (NEGATIVE); OPIATE SCREEN URINE NEGATIVE (NEGATIVE); OXYCODONE STAT NEGATIVE (NEGATIVE); PROPOXYPHENE STAT NEGATIVE (NEGATIVE); TRICYCLIC ANTIDEPRESSANTS SCRE NEGATIVE (NEGATIVE)
[2022-06-20 20:34] LABS: BACTERIA,URINE MODERATE /HPF; WBC,URINE 0-2 /HPF
[2022-06-20 21:29] LABS: ALANINE AMINOTRANSFERASE 27 U/L (0-55); ALBUMIN 4.5 GM/DL (3.2-4.5); ALKALINE PHOSPHATASE 117 U/L (40-136); BILIRUBIN,TOTAL 0.3 MG/DL (0.1-1.0); BUN/CREATININE RATIO 9; CALCIUM 9.7 MG/DL (8.5-10.1); CARBON DIOXIDE 21 MMOL/L (21-32); CHLORIDE 105 MMOL/L (98-107); CREATININE SERUM 0.86 MG/DL (0.60-1.30); GFR ESTIMATED 93; GLUCOSE 123 MG/DL (70-105); POTASSIUM 3.5 MMOL/L (3.6-5.0); SALICYLATE < 5.0 MG/DL (5.0-20.0); SODIUM 141 MMOL/L (135-145); TOTAL PROTEIN 7.7 GM/DL (6.4-8.2)
[2022-06-20 21:32] LABS: ACETAMINOPHEN < 10 UG/ML (10-30)
== END 2022-06-20 23:20 | disposition left against medical advice (07) ==
LOC: EDUNIT# 19:33 → ER 19:34
DX: R45.851 Suicidal ideations (principal); F25.9 Schizoaffective disorder, unspecified; F32.A Depression, unspecified; Z20.822 Contact with and (suspected) exposure to COVID-19; Z79.899 Other long term (current) drug therapy
CPT/HCPCS: 36415; 80053; 80306; 80320; 80329; 81000; 85025; 87636; 93005

== ENCOUNTER 2022-12-23 13:21 | Emergency (ER) | payer MEDICAID ==
[~2022-12-23] VITALS: Ht 154.9 cm; Wt 69.8 kg
[2022-12-23 13:35] VITALS: BP 143/101
[2022-12-23] MEDS ORDERED: TRAM50TA3 PO (13:58)
--- NOTE | 2022-12-23 13:59 | ED EENT ---
History of Present Illness General Chief Complaint: Dental Problems/Pain Stated Complaint: JAW PAIN Nursing Triage Note: PT AMB TO RM 5 WITH COMPLAINT OF DENTAL PAIN. STATES HAS AN APPT WITH DENTIST ON SATURDAY. HAS BEEN ON 2 DIFFERENT ANTIBIOTICS. Source: patient Exam Limitations: no limitations History of Present Illness Date Seen by Provider: Dec 23, 2022 Time Seen by Provider: 13:40 Initial Comments 32-year-old female presents to the ED with tooth pain to left lower incisor starting on . States she think she has an abscessed tooth. She was seen at [facility] clinic yesterday and started on an antibiotic, Augmentin. States she has been taking Tylenol and ibuprofen but has not provided relief. States she has also been using Magic mouthwash which she thinks makes it worse. States she woke up with some abdominal upset and nausea, thinks it was due to taking ibuprofen. States she took a nausea medication that helped and some Pepto. No longer complaining of abdominal pain. Denies fevers, chest pain, abdominal pain, vomiting. Allergies and Home Medications Allergies Coded Allergies: Sarah Known Allergies (Unverified Allergy, Mild, 05/06/09) Patient Home Medication List Home Medication List Reviewed: Yes Duloxetine HCl (Cymbalta) 30 Mg Capsule.dr, 30 MG PO Q48H, (Reported) Entered as Reported by: VIJI ZHOU on 10/11/21 0826 Hydrocodone Bit/Acetaminophen (HYDROcodone/APAP 5 MG/325 MG TAB) 1 Tab Tab, 1 TAB PO Q8H PRN for PAIN-MODERATE (5-7) Prescribed by: KRISTOPHER ROBERTS on 10/11/21 0918 Paliperidone (Invega) 3 Mg Tab.er.24, 3 MG PO DAILY, (Reported) Entered as Reported by: ISRA QUINN on 10/09/21 1210 Quetiapine Fumarate (Seroquel) 50 Mg Tablet, 50 MG PO HS, (Reported) Entered as Reported by: ISRA QUINN on 10/09/21 1210 Tramadol HCl (Tramadol HCl) 50 Mg Tablet, 50 MG PO Q8H Prescribed by: Deb Waldron on 12/23/22 1359 Review of Systems Review of Systems Constitutional: see HPI Past Nvrdvou-Gstutg-Snrfwy Hx Patient Social History Tobacco Use?: No Use of E-Cig and/or Vaping dev: Yes E-Cig or Vaping type used: Nicotine Substance use?: No Alcohol Use?: No Pt feels they are or have been: No Immunizations Up To Date Tetanus Booster (TDap): Less than 5yrs First/Initial COVID19 Vaccinat: yes Second COVID19 Vaccination Lucio: yes Third COVID19 Vaccination Date: yes Seasonal Allergies Seasonal Allergies: No Past Medical History Surgeries: Yes Section Respiratory: No Currently Using CPAP: No Currently Using BIPAP: No Cardiac: No Neurological: No Reproductive Disorders: No Female Reproductive Disorders: Denies Sexually Transmitted Disease: Yes Genitourinary: No Gastrointestinal: Yes Gall Bladder Disease Musculoskeletal: No Endocrine: No HEENT: No Cancer: No Psychosocial: Yes (POLYSUBSTANCE ABUSE, schizoaffective disorder) Anxiety, PTSD, Depression Integumentary: No Blood Disorders: No Family Medical History No Pertinent Family Hx Physical Exam Vital Signs Vital Signs - First Documented 12/23/22 13:35 Temp 37.1 Pulse 80 Resp 16 B/P (MAP) 143/101 (115) Pulse Ox 97 O2 Delivery Room Air Height, Weight, BMI Height: 5'1.00" Weight: 115lbs. oz. 52.040414ld; 29.00 BMI Method:Stated General Appearance: WD/WN, no apparent distress Mouth/Throat: dental tenderness; No excessive drooling, No mandibular swelling, No tongue swollen; other (Small white area behind left lower incisor, tooth #23.) Cardiovascular: regular rate, rhythm, no edema, no gallop, no JVD, no murmur Respiratory: lungs clear, normal breath sounds, no respiratory distress, no accessory muscle use Neurologic/Psychiatric: alert, normal mood/affect, oriented x 3 Skin: normal color, warm/dry Progress/Results/Core Measures Results/Orders My Orders Orders - DEB WALDRON APRN Tramadol Tablet (Ultram Tablet) (12/23/22 14:00) Medications Given in ED Current Medications Medications Dose Ordered Sig/Pratibha Route Start Time Stop Time Status Last Admin Dose Admin Tramadol HCl 50 mg ONCE ONCE PO 12/23/22 14:00 12/23/22 14:02 DC 12/23/22 14:02 50 MG Vital Signs/I&O 12/23/22 13:35 Temp 37.1 Pulse 80 Resp 16 B/P (MAP) 143/101 (115) Pulse Ox 97 O2 Delivery Room Air Blood Pressure Mean: 115 Progress Progress Note : Time: 13:55 Progress Note Patient seen and evaluated, sitting on bed, no acute distress. Based on exam and symptoms, concern for dental abscess. She is already being treated with antibiotic. We will give her a dose of tramadol here, and a prescription for pain control. Instructed her to follow-up with [facility] dentist this week. Instructed to continue antibiotic. Discharge directions and return precautions provided. Departure Impression Primary Impression: Dental abscess Disposition: HOME, SELF-CARE Condition: Stable Departure-Patient Inst. Decision time for Depature: 13:56 Referrals: [facility] (PCP/Family) Primary Care Physician Patient Instructions: Dental Pain (DC) Add. Discharge Instructions: Take tramadol as needed for pain. You may also take 800 mg or ibuprofen with food every 8 hours. And alternate with Tylenol 1000 mg every 8 hours. Follow-up with the [facility] dentist this week. Continue taking your antibiotic as prescribed. Return for fevers greater than 100.4, swelling or redness of your jaw or mouth, increased or uncontrolled pain, or any other new, concerning, or worsening symptoms. All discharge instructions reviewed with patient and/or family. Voiced unders tanding. Scripts Tramadol HCl (Tramadol HCl) 50 Mg Tablet 50 MG PO Q8H, #10 TAB 0 Refills Prov: DEB WALDRON APRN 12/23/22 DEB WALDRON APRN Dec 23, 2022 13:59
== END 2022-12-23 14:03 | disposition home or self-care (01) ==
LOC: EDUNIT# 13:21 → ER 13:23
DX: K04.7 Periapical abscess without sinus (principal); F17.290 Nicotine dependence, other tobacco product, uncomplicated
CPT/HCPCS: 99283

== ENCOUNTER 2023-09-01 10:34 | Emergency (ER) | payer MEDICAID ==
[~2023-09-01 10:34] MED LIST changes: +POTA-330 PO; -POTA-51 PO; +TRAM50TA3 PO
[2023-09-01 11:02] VITALS: BP 146/84
[2023-09-01] MEDS ORDERED: CLIN-144 PO (11:04)
[2023-09-01] MEDS ORDERED: ACHD5005 PO (11:04)
--- NOTE | 2023-09-01 11:05 | ED EENT ---
History of Present Illness General Stated Complaint: TOOTH PAIN Source: patient Exam Limitations: no limitations (ESTEFANY FRANCOIS) History of Present Illness Date Seen by Provider: Sep 01, 2023 Time Seen by Provider: 11:03 Initial Comments Patient is a 33-year-old female presents ED with right upper dental pain for the past week. Patient states she has pain in her right upper jaw that radiates to the right side neck. She does report some swelling of the face. Was seen at the clinic twice was prescribed Augmentin and states she recently finished. She is continue having pain. Has been taking anti-inflammatories without any. She is trying to get scheduled for dental follow-up this week. Patient reports pain with eating. Denies any ear pain, headache, dizziness, nausea vomiting, diarrhea. She states nothing makes this better. (ESTEFANY FRANCOIS) Allergies and Home Medications Allergies Coded Allergies: NKANo Known Allergies (Unverified Allergy, Mild, 05/06/09) Patient Home Medication List Home Medication List Reviewed: Yes (ESTEFANY FRANCOIS) Clindamycin HCl (Clindamycin HCl) 300 Mg Capsule, 300 MG PO QID Prescribed by: GRZEGORZ WILKINSON on 09/01/23 1104 Duloxetine HCl (Cymbalta) 30 Mg Capsule.dr, 30 MG PO Q48H, (Reported) Entered as Reported by: VIJI ZHOU on 10/11/21 0826 Hydrocodone Bit/Acetaminophen (HYDROcodone/APAP 5 MG/325 MG TAB) 1 Tab Tab, 1 TAB PO Q8H PRN for PAIN-MODERATE (5-7) Prescribed by: KRISTOPHER ROBERTS on 10/11/21 0918 Hydrocodone/Acetaminophen (Hydrocodone-Acetamin 5-325 mg) 5 Mg-325 Mg Tablet, 1 TAB PO Q4H PRN for PAIN-MODERATE (5-7) Prescribed by: GRZEGORZ WILKINSON on 09/01/23 1104 Paliperidone (Invega) 3 Mg Tab.er.24, 3 MG PO DAILY, (Reported) Entered as Reported by: ISRA QUINN on 10/09/21 1210 Quetiapine Fumarate (Seroquel) 50 Mg Tablet, 50 MG PO HS, (Reported) Entered as Reported by: ISRA QUINN on 10/09/21 1210 Tramadol HCl (Tramadol HCl) 50 Mg Tablet, 50 MG PO Q8H Prescribed by: Deb Anaya on 12/23/22 1359 Review of Systems Review of Systems Constitutional: No chills, No diaphoresis Eyes: Denies Drainage, Denies Decreased Acuity Ears: Denies Dizziness, Denies Pain Nose: denies clots, denies congestion Mouth: denies clots, denies loose teeth; pain Throat: denies pain, denies swelling Respiratory: No cough Cardiovascular: No chest pain Gastrointestinal: No abdominal pain, No diarrhea, No nausea, No vomiting Musculoskeletal: No back pain, No joint pain Skin: No change in color (ESTEFANY FRANCOIS) All Other Systems Reviewed Negative Unless Noted: Yes (ESTEFANY FRANCOIS) Past Nceeret-Qbffmn-Ylebms Hx Immunizations Up To Date Tetanus Booster (TDap): Less than 5yrs First/Initial COVID19 Vaccinat: yes Second COVID19 Vaccination Lucio: yes Third COVID19 Vaccination Date: yes (ESTEFANY FRANCOIS) Seasonal Allergies Seasonal Allergies: No (ESTEFANY FRANCOIS) Past Medical History Surgeries: Yes Section Respiratory: No Currently Using CPAP: No Currently Using BIPAP: No Cardiac: No Neurological: No Reproductive Disorders: No Female Reproductive Disorders: Denies Sexually Transmitted Disease: Yes Genitourinary: No Gastrointestinal: Yes Gall Bladder Disease Musculoskeletal: No Endocrine: No HEENT: No Cancer: No Psychosocial: Yes (POLYSUBSTANCE ABUSE, schizoaffective disorder) Anxiety, PTSD, Depression Integumentary: No Blood Disorders: No (ESTEFANY FRANCOIS) Family Medical History No Pertinent Family Hx (ESTEFANY FRANCOIS) Physical Exam Vital Signs Vital Signs - First Documented 09/01/23 11:02 Temp 37.0 Pulse 86 Resp 20 B/P (MAP) 146/84 (104) Pulse Ox 96 O2 Delivery Room Air (CARLTON JENNINGS MD) Height, Weight, BMI Height: 5'1.00" Weight: 115lbs. oz. 52.172493cf; 29.00 BMI Method:Stated General Appearance: WD/WN, no apparent distress Eyes: bilateral eye normal inspection, bilateral eye PERRL, bilateral eye EOMI Ears: bilateral ear auricle normal, bilateral ear canal normal, bilateral ear TM normal Nose: normal inspection Mouth/Throat: other (Dental disease noted throughout. Decay to right upper premolar. Gum swelling without obvious without abscess. Dental tenderness on palpation. Very minimal right side a jaw swelling. No cervical adenopathy. No anterior neck swelling or redness.) Neck: non-tender, full range of motion, supple Cardiovascular: regular rate, rhythm, no edema, no gallop, no JVD Respiratory: chest non-tender, lungs clear, normal breath sounds, no respiratory distress, no accessory muscle use Gastrointestinal: normal bowel sounds, non tender, soft, no organomegaly Neurologic/Psychiatric: supply aide II-XII nml as tested, no motor/sensory deficits, alert Skin: normal color, warm/dry (ESTEFANY FRANCOIS) Progress/Results/Core Measures Results/Orders Vital Signs/I&O 09/01/23 11:02 Temp 37.0 Pulse 86 Resp 20 B/P (MAP) 146/84 (104) Pulse Ox 96 O2 Delivery Room Air (CARLTON JENNINGS MD) Departure Communication (PCP) Concern for right upper dental infection. Do not have dental x-rays but I do think she would benefit follow-up with a dentist. She recently finished Augmentin. Will discharge with clindamycin. Will discharge with few days worth of pain medication. Soft foods. Provided oral maxillofacial surgeon follow-up. She is tolerating secretions. No stridors. No evidence of Carmelo angina. No evidence of retropharyngeal abscess. Oropharynx patent. Vital signs stable. Return precautions were discussed such as increased pain, swelling or redness of the face (ESTEFANY FRANCOIS) Impression Primary Impression: Toothache Disposition: HOME, SELF-CARE Condition: Stable Departure-Patient Inst. Decision time for Depature: 11:04 (ESTEFANY FRANCOIS) Referrals: [facility] (PCP/Family) Primary Care Physician GARY GREENFIELD DDS Patient Instructions: Dental Pain Scripts Hydrocodone/Acetaminophen (Hydrocodone-Acetamin 5-325 mg) 5 Mg-325 Mg Tablet 1 TAB PO Q4H PRN for PAIN-MODERATE (5-7), #8 TAB Prov: ESTEFANY FRANCOIS 09/01/23 Clindamycin HCl (Clindamycin HCl) 300 Mg Capsule 300 MG PO QID for 7 Days, #28 CAP Prov: ESTEFANY FRANCOIS 09/01/23 ATTENDING PHYSICIAN NOTE: I was physically present in the ER as attending physician during the care of this patient. I did not personally interview or examine this patient, and I was not otherwise directly involved in the decision-making or delivery of care for this patient. (CARLTON JENNINGS MD) ESTEFANY FRANCOIS Sep 01, 2023 11:05 CARLTON JENNINGS MD Sep 01, 2023 19:12
== END 2023-09-01 11:15 | disposition home or self-care (01) ==
LOC: EDUNIT# 10:34 → ER 10:36
DX: K08.89 Other specified disorders of teeth and supporting structures (principal)
CPT/HCPCS: 99282